=== PATIENT | male | born 1955 | race Caucasian/White ===

== ENCOUNTER 2021-10-11 05:43 | Day surgery (SDC) | payer MEDICARE, OTHER ==
[2021-10-08 09:24] VITALS: BMI 33.2
[~2021-10-11 05:43] MED LIST: Pre Op ABX Message 1 EACH MISC MISCELLANE ONE
[2021-10-11] MEDS ORDERED: LACTATED RINGERS 1,000 ML IV ONE ×2 (07:02→10:35)
[2021-10-11] MEDS ORDERED: DEXAMETHASONE SOD PHOSPHATE 4 MG/ML 1 ML VIAL IVP ONE (07:03)
[2021-10-11] MEDS ORDERED: ONDANSETRON 4 MG/2 ML VIAL IVP ONE (07:03)
[2021-10-11] MEDS ORDERED: ONDANSETRON 4 MG/2 ML VIAL ONE (07:04)
[2021-10-11 07:15] LABS: Basophils % (A) 0 %; Eosinophils # (A) 0.1 k/uL (0-0.7); Eosinophils % (A) 1 %; HCT 41.2 % (39.0-53.0); HGB 13.7 gm/dL (13.0-17.5); Lymphocytes # (A) 0.9 k/uL (1.0-4.8); Lymphocytes % (A) 10 %; MCH 26.2 pg (25.0-35.0); MCHC 33.2 g/dL (31.0-37.0); MCV 78.7 fL (80.0-100.0); Mean Platelet Volume 8.4; Monocytes # (A) 0.7 k/uL (0-1.0); Monocytes % (A) 8 %; Neutrophils # (A) 6.8 k/uL (1.3-7.7); Neutrophils % (A) 79 %; Platelet Count 218 k/uL (150-450); RBC 5.23 m/uL (4.30-5.90); RDW 14.5 % (11.5-15.5); WBC 8.6 k/uL (3.8-10.6)
[2021-10-11 07:32] LABS: African American GFR (CKD) >90 (>60 ml/min/1.73 sqM); Anion Gap 8 mmol/L; Blood Urea Nitrogen 24 mg/dL (9-20); Calcium 10.1 mg/dL (8.4-10.2); Carbon Dioxide 33 mmol/L (22-30); Chloride 89 mmol/L (98-107); Glucose 82 mg/dL (74-99); Non-African American GFR(CKD) >90 (>60 ml/min/1.73 sqM); Potassium 3.5 mmol/L (3.5-5.1); Sodium 130 mmol/L (137-145)
[2021-10-11] MEDS ORDERED: LIDOCAINE 2% INJ 20 MG/ML (2 ML VIAL) ONE (07:56)
[2021-10-11] MEDS ORDERED: SUCCINYLCHOLINE CHLORIDE 100 MG/5 ML SYR IV ONE (07:56)
[2021-10-11] MEDS ORDERED: NEOSTIGMINE 1 MG/ML 10 ML VIAL ONE (07:56)
[2021-10-11] MEDS ORDERED: ROCURONIUM 10 MG/ML (5 ML VIAL) IV ONE (07:56)
[2021-10-11] MEDS ORDERED: PROPOFOL 10 MG/ML 20 ML VIAL IV ONE (07:56)
[2021-10-11] MEDS ORDERED: fentaNYL (PF) 50 MCG/ML 2 ML AMP ONE (07:56)
[2021-10-11] MEDS ORDERED: GLYCOPYRROLATE 0.2 MG/ML 2 ML VIAL ONE (07:56)
[2021-10-11] MEDS ORDERED: HYDROmorphone (PF) 1 MG/ML ONE (07:56)
[2021-10-11] MEDS ORDERED: MIDAZOLAM 2 MG/2 ML VIAL ONE (07:56)
[2021-10-11] MEDS ORDERED: SODIUM CHLORIDE 0.9% 100 ML with ceFAZolin 2 GM IV ONE ×2 (08:00)
--- NOTE | 2021-10-11 09:29 | P.OP ---
Date of Procedure: 10/11/21 Procedure(s) Performed: PREOPERATIVE DIAGNOSES: 1. 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 Right chronic quadriceps tendon rupture and disru ption of the extensor mechanism, right knee PROCEDURES PERFORMED: 1. Right knee open quad tendon repair, secondary 2. Augmentation of quad repair with Arthrex dermal allograft, 4 cm x 4cm x 3 mm thickness ANESTHESIA: General ESTIMATED BLOOD LOSS: Less than 25 cc TOURNIQUET: 60 minutes C D AREA SUPERVISOR: Kori Garcia PA-C (Assistance with: patient positioning, exposure, retraction, debridement of scar tissue, repair, graft placement and fixation, closure, dressing, hemostasis) COMPLICATIONS: None DISPOSITION: To postanesthesia care unit INDICATIONS: Mr. Gale is a 66 year old male with no significant medical history who ruptured his quad tendon during a fall. This happened approximately 10 weeks ago and he has no active extension of the knee, and a puckered spot on the lateral aspect of his quad insertion indicating retraction of the quad stump from the patella. He presents to the operating room today for secondary quad tendon repair with possible augmentation with dermal allograft. I have explained the details of this surgery thoroughly and also explained the potential risks and complications. These are inclusive of, but not limited to: bleeding, infection, scarring, discomfort, blood vessel and nerve damage, stiffness, weakness, need for further surgery, failure to relieve symptoms, persistence or worsening of problems, , and other risks. He understands that he will likely lose some degree of flexion and we discussed that his quadriceps muscle may have difficulty activating and restoring strength. Patient is aware of these risks as well as the increased risk of poorer outcome due to the time frame of the injury and agrees to proceed with surgery. The consent form has been signed. PROCEDURE: Appropriate consent was obtained from the patient, who was then taken to the operating room and placed in the supine position. General anesthesia was initiated. Positioning was performed with care to make sure that all pressure points were adequately padded. Bear-hugger was used along with leg sequential compression device(s). Prepping and draping was completed in the usual aseptic fashion using Chloraprep. Timeout was called, confirming patient identity, side, procedure, and administration of antibiotics. The patient received intravenous antibiotics prior to incision. Incision was created over the anterior aspect of the knee directly over the patella and quad tendon. Incision was carried carefully down through skin into subcu tissues and to the peritenon. Full thickness subcutaneous flaps were created for exposure of the extensor mechanism and the ruptured quad tendon. The quad tendon had significant scar tissue present and this intervening tissue was removed as necessary to get back to the actual tendon material. The disorganized scar tissue was easily recognizable due to its diminished resilience with attempted mobilization with a forceps. The anterior superior aspect of the patella was noted to have minimal remaining soft tissue attached. This surface was roughened using a hand rasp so that the quad repair and planned dermal allograft would adhere and heal to its surface. Next, four 3 mm holes were drilled from the anterior aspect of the patella to the proximal edge. #5 FiberWire sutures were then brought through the patella using a Engagio suture passer and a modified Krackow type stitch was placed on one side of the quad tendon. The suture was brought through the adjacent hole made in the patella. In similar fashion, another #5 Fiberwire suture was placed into the other half of the quad tendon and brought through the drill holes. The patella was carefully held in place by an health center assistant and quad tendon was noted to be well reduced into the superior pole of the patella with the knee in full extension using some tension on the sutures. These sutures were then tied down to the bone securely with at least 6 alternating half-hitches in the fiber wire. Once tension was released, it was noted that the quad tendon adequately restored the continuity of the extensor mechanism centrally, although I felt that supplemental augmentation was necessary in this case due to the paucity of soft tissue on the anterior surface of the patella. Therefore, a dermal allograft, 4 cm x 4 cm x 3 mm thickness was placed on the anterior aspect of the repair and sutured circumferentially to the quad tendon, medial an lateral retinaculum, and the patellar tendon. This was performed with the knee in approximately 40 degrees of flexion. On both the medial and lateral sides of the extensor retinaculum, supplemental #2 FiberWire sutures were placed as well as 0 Vicryl sutures to further reinforce the repair. Once the graft had been placed, the knee was gently brought through range of motion from 0-50 degrees without undue tension or gapping at the repair site. I did not feel that flexing more than 50 degrees was safe for the repair at this time. The repair appeared robust without evidence of suture slippage or lengthening of the quad tendon. Further testing past 50 was not performed in order to not over stress the repair. Closure of the wound was performed after deflation of the tourniquet and thorough hemostasis using electrocautery. Deep subcutaneous closure was performed with 2-0 Vicryl sutures followed by superficial closure with the same. Ginny were used for the skin. Thorough irrigation of the wound was performed using normal saline. Hemostasis was obtained throughout the case using electrocautery. Sterile dressing was then applied using Optefoam, ABDs pads, Sharp roll and an Chris wrap and a secure knee immobilizer splint was applied. The patient tolerated the procedure well and no complications and minimal blood loss. He was subsequently transferred to recovery room in stable condition. Sponge and needle counts are correct.
[2021-10-11 09:47] VITALS: TEMP 97.3
[2021-10-11 09:55] VITALS: RESP 18
[2021-10-11] MEDS ORDERED: HYDROmorphone 0.5 MG/0.5 ML SYRINGE IVP ONE ×2 (09:59→10:21)
[2021-10-11 11:05] VITALS: BP 119/67; PULSE 66
== END 2021-10-11 12:00 | disposition home or self-care (01) ==
LOC: OR 05:43
PROVIDERS: ATTEND Orthopaedic Surgery
DX: S76.111D Strain of right quadriceps muscle, fascia and tendon, subsequent encounter (principal); K21.9 Gastro-esophageal reflux disease without esophagitis; Z88.0 Allergy status to penicillin; Z88.6 Allergy status to analgesic agent; Z91.018 Allergy to other foods; W19.XXXD Unspecified fall, subsequent encounter; Z79.899 Other long term (current) drug therapy; Z79.01 Long term (current) use of anticoagulants; Z80.9 Family history of malignant neoplasm, unspecified
CPT/HCPCS: 27386; C1713; J2250; J1100; J2710; J0690; J2405; J3010; J1170 ×2; J0330; J2704; J2001; 80048; 85025

== ENCOUNTER 2021-10-13 22:25 | Inpatient (IN) | payer MEDICARE, OTHER ==
--- NOTE | 2021-10-13 23:40 | ED ---
General Adult HPI - General Chief complaint: Shortness of Breath Stated complaint: Respiratory Failure Time Seen by Provider: 10/13/21 22:29 Source: patient, EMS Mode of arrival: EMS Limitations: no limitations - History of Present Illness Initial comments: This patient is a 66-year-old man who is seen here as a transfer from [facility]. The patient had gone to that facility to be evaluated for intractable nausea and vomiting. The patient did have workup for the nausea and vomiting, but that facility was more concerned when they placed him on pulse oxymetry probe it showed readings only as high as 91 on room air. Further workup revealed that the patient appeared to have multi lobar pneumonitis. The CT also showed some fluid in the esophagus and hiatal hernia and there is concern about aspiration as the patient had multiple rounds of vomiting. The patient's recent history is notable for repair of the quadriceps here by Dr. Alfaro. The patient is denying any change in his postsurgical symptoms. Patient taking Eliquis as DVT prophylaxis but he had vomited last dose. -: hour(s) Radiation: non-radiation Quality: other Consistency: constant Improves with: none Worsens with: none Associated Symptoms: cough, nausea/vomiting Treatments Prior to Arrival: none - Related Data Home Medications Medication Instructions Recorded Confirmed Ferrous Sulfate [Feosol] 325 mg PO DAILY 10/08/21 10/13/21 Previous Rx's Medication Instructions Recorded Apixaban [Eliquis] 2.5 mg PO BID #24 tab 10/11/21 Ondansetron Odt [Zofran Odt] 4 mg PO Q8HR PRN #14 tab 10/11/21 Sennosides-Docusate Sodium 1 tab PO BID #60 tablet 10/11/21 [Senokot-S] Allergies Allergy/AdvReac Type Severity Reaction Status Date / Time aspirin AdvReac SEE Verified 10/13/21 23:42 COMMENTS Penicillins AdvReac SEE Verified 10/13/21 23:42 COMMENTS oranges Allergy Rash/Hives Uncoded 10/11/21 06:32 Review of Systems ROS Statement: Those systems with pertinent positive or pertinent negative responses have been documented in the HPI. ROS Other: All systems not noted in ROS Statement are negative. Constitutional: Denies: fever Respiratory: Reports: cough. Denies: dyspnea, wheezes, hemoptysis Cardiovascular: Denies: chest pain, palpitations, syncope Gastrointestinal: Reports: nausea, vomiting. Denies: abdominal pain, diarrhea, constipation, hematemesis Musculoskeletal: Denies: back pain Skin: Denies: rash Neurological: Denies: headache, weakness, numbness Past Medical History Additional Past Medical History / Comment(s): Fell 9 weeks ago down the stairs. Hx. of anemia. History of Any Multi-Drug Resistant Organisms: None Reported Additional Past Surgical History / Comment(s): EGD, colonoscopy Past Anesthesia/Blood Transfusion Reactions: No Reported Reaction Past Psychological History: No Psychological Hx Reported Smoking Status: Never smoker Past Alcohol Use History: None Reported Past Drug Use History: None Reported - Past Family History Mother Family Medical History: Cancer General Exam Limitations: no limitations General appearance: alert, in no apparent distress Head exam: Present: atraumatic, normocephalic Eye exam: Present: normal appearance. Absent: scleral icterus, conjunctival injection ENT exam: Present: mucous membranes dry Neck exam: Present: normal inspection, full ROM Respiratory exam: Present: rales, rhonchi. Absent: respiratory distress, wheezes, stridor, chest wall tenderness, accessory muscle use Cardiovascular Exam: Present: regular rate, normal rhythm, normal heart sounds. Absent: systolic murmur, diastolic murmur, rubs, gallop GI/Abdominal exam: Present: soft. Absent: distended, tenderness, guarding, rebound, rigid, mass Extremities exam: Present: normal capillary refill, other (There is a knee immobilizer right leg. Distal pulses are normal. There is good capillary refill.). Absent: tenderness Back exam: Present: normal inspection. Absent: vertebral tenderness Neurological exam: Present: alert, oriented X3. Absent: motor sensory deficit Skin exam: Present: warm, dry, intact, normal color. Absent: rash Course Vital Signs 10/13/21 10/13/21 10/14/21 22:28 23:00 03:40 Temperature 97.8 F Pulse Rate 81 77 89 Pulse Rate [ Pulse Oximetery ] Respiratory 16 18 18 Rate Blood Pressure 93/60 107/69 94/54 Blood Pressure [Right Arm] O2 Sat by Pulse 91 L 95 94 L Oximetry 10/14/21 10/14/21 04:15 05:40 Temperature 97.7 F Pulse Rate Pulse Rate [ 83 83 Pulse Oximetery ] Respiratory 16 16 Rate Blood Pressure Blood Pressure 96/62 [Right Arm] O2 Sat by Pulse 97 Oximetry EKG Findings - EKG Results: EKG: interpreted by ERMD, sinus rhythm (With occasional PVCs, rate 85 bpm), normal axis - Blocks, Chandler, Hypertrophy, ST Abn: AV and intraventricular conduction: 1 AV block Repolarization changes or abnormalities: nonspecific abnormality, ST segment, and/or T wave Medical Decision Making - Medical Decision Making Patient is 66-year-old man transferred from [facility] for multi lobar pneumonitis, suspect aspiration. Case discussed with sound physician and patient be admitted for further treatment. Disposition Clinical Impression: Pneumonia Disposition: ADMITTED IP TO THIS HOSP Condition: Fair Is patient prescribed a controlled substance at d/c from ED?: No Referrals: Ani Diaz PAC [Primary Care Provider] - 1-2 days
[2021-10-14] MEDS ORDERED: SODIUM CHLORIDE 0.9% 1,000 ML IV STA (01:10)
[2021-10-14] MEDS ORDERED: SODIUM CHLORIDE 0.9% 500 ML 500 ML IV STA (01:10)
[2021-10-14] MEDS ORDERED: PNEUMONIA PROTOCOL UTILIZED 1 EACH MISC PO PRN (01:12)
[2021-10-14] MEDS ORDERED: ALBUTEROL NEBULIZED 2.5 MG/3 ML INHALATION PRN (01:12)
[2021-10-14] MEDS ORDERED: AZITHROMYCIN 500 MG in SODIUM CHLORIDE 0.9% 250 ML IVPB ONE (01:30)
[2021-10-14] MEDS ORDERED: CEFEPIME 2 GM in SODIUM CHLORIDE 0.9% 100 ML IVPB ONE (01:30)
[2021-10-14] MEDS ORDERED: ONDANSETRON 4 MG/2 ML VIAL IVP PRN (05:30)
--- NOTE | 2021-10-14 05:38 | P.HPIM ---
History of Present Illness H&P Date: 10/14/21 Chief Complaint: hypoxemia 66-year-old male denies any past medical history Patient is a transfer from [facility] in the [facility], for hypoxemia secondary to what is thought to be aspiration pneumonitis. Patient recently underwent right lower extremity quadrant repair few days ago (which was an injury secondary to an accidental fall off the stairs couple months ago), he went home on Monday and reports frequent episodes of nausea vomiting despite taking his medications. He reports waking up with vomiting all around him in bed his brother grew concerned and decided to take him to the hospital for evaluation. EMS found him hypoxic in the mid 80s put him on supplemental oxygen. Patient indicated that he was not taking his liquids as prescribed for DVT prophylaxis postsurgery. CT angios the chest was performed at [facility] at the [facility] found no evidence of PE, however did show evidence of patchy infiltrates over the posteriorly in the right upper lobe and in the left lower lobe which was suggestive of possible aspiration. Patient was found to have increasing requirement of oxygen he was placed on nonrebreather 15 L. And then transferred to our facility for further care Currently patient denies any chest pain denies any shortness of breath denies any dizziness lightheadedness denies any fevers or chills he feels that the knee immobilizer is very tight around his knee and requesting to see his surgeon. Blood work done at the other facility showed hypomagnesemia and hypokalemia it's not clear to me if this was replaced Mild microcytic anemia. Hemoglobin of 12.6 patient on ferrous sulfate Lactic acid was 1.6 Patient denies tobacco smoking, drug abuse, or heavy alcohol consumption Review of Systems Pertinent positives as noted in HPI. All other systems were reviewed and are negative Past Medical History Additional Past Medical History / Comment(s): Fell 9 weeks ago down the stairs. Hx. of anemia. History of Any Multi-Drug Resistant Organisms: None Reported Additional Past Surgical History / Comment(s): EGD, colonoscopy Past Anesthesia/Blood Transfusion Reactions: No Reported Reaction Past Psychological History: No Psychological Hx Reported Smoking Status: Never smoker Past Alcohol Use History: None Reported Past Drug Use History: None Reported - Past Family History Mother Family Medical History: Cancer Father Family Medical History: Cancer Brother(s) Family Medical History: Cancer, Myocardial Infarction ([place]) Additional Family Medical History / Comment(s): 2 brothers w/ hx of cancer, 1 other from [place] Medications and Allergies Home Medications Medication Instructions Recorded Confirmed Type Ferrous Sulfate [Feosol] 325 mg PO DAILY 10/08/21 10/13/21 History Apixaban [Eliquis] 2.5 mg PO BID #24 tab 10/11/21 10/13/21 Rx Ondansetron Odt [Zofran Odt] 4 mg PO Q8HR PRN #14 tab 10/11/21 10/13/21 Rx Sennosides-Docusate Sodium 1 tab PO BID #60 tablet 10/11/21 10/13/21 Rx [Senokot-S] Allergies Allergy/AdvReac Type Severity Reaction Status Date / Time aspirin AdvReac SEE Verified 10/13/21 23:42 COMMENTS Penicillins AdvReac SEE Verified 10/13/21 23:42 COMMENTS oranges Allergy Rash/Hives Uncoded 10/11/21 06:32 Physical Exam Vitals: Vital Signs Temp Pulse Resp BP Pulse Ox 10/13/21 23:00 77 18 107/69 95 10/13/21 22:28 97.8 F 81 16 93/60 91 L Intake and Output 10/13/21 10/13/21 10/14/21 14:59 22:59 06:59 Other: Weight 48.534 kg Patient my examConstitutional: No acute distress, conversant, pleasant Eyes: Anicteric sclerae, moist conjunctiva, Pupils equal round reactive to light ENMT: NC/AT Oropharynx clear, no erythema, or exudates Neck: Supple, no masses, or JVD No carotid bruits No thyromegaly Lungs: Good breath sounds bilaterally no wheezing rhonchi or rales Clear to percussion Normal respiratory effort, no accessory muscle use Cardiovascular: Heart regular in rate and rhythm, No murmurs, gallops, or rubs No peripheral edema Abdominal: Soft Nontender, no guarding, rebound or rigidity Abdomen moving with respiration Normoactive bowel sounds No hepatomegaly, No splenomegaly No palpable mass No abdominal wall hernia noted Skin: Normal temperature, tone, texture, turgor No induration No subcutaneous nodules No rash, lesions No ulcers Extremities: Right lower extremity with knee immobilizer No digital cyanosis No clubbing Pedal pulses intact and symmetrical, capillary refill immediate Radial pulses intact and symmetrical No calf tenderness Psychiatric: Alert and oriented to person, place and time Appropriate affect fair judgement Neuro Muscles Strength 5/5 in bilateral upper extremities and left lower extremity, right lower extremity exam is limited due to surgery and knee immobilizer Sensation to light touch grossly present throughout Cranial nerves II-XII grossly intact No focal sensory deficits Lymphatics: no palpable cervical or supraclavicular , or inguinal lymph nodes Assessment and Plan Assessment: Acute hypoxic respiratory failure Aspiration pneumonitis Aspiration precautions Follow-up cultures Patient initiated on antibiotics in the ED with azithromycin and cefepime Monitor vital signs IV fluid hydration with normal saline Tylenol for fever when necessary CT angios the chest performed showed no acute PE, showed changes suggestive of possible aspiration posteriorly in the right upper lobe in the left lower lobe Recent surgery for carotid repair of right lower extremity patient continues to be in the immobilizer Consult to orthopedics for follow-up Continue with a liquids for DVT prophylaxis postop Microcytic anemia Patient denies GI bleeding Continue with ferrous sulfate home medication Hypomagnesemia and hypokalemia We'll follow-up levels Unknown if it was replaced and the other facility DVT prophylaxis on Ellquis per orthopedic recommendations for postop Full code
[2021-10-14] MEDS: FERROUS SULFATE 325 MG TAB PO SCH (07:50)
[2021-10-14] MEDS: SENNOSIDES-DOCUSATE SODIUM 1 EACH TAB PO SCH ×2 (07:50→21:11)
[2021-10-14] MEDS: APIXABAN 2.5 MG TABLET PO SCH ×2 (07:50→21:11)
[2021-10-14] MEDS ORDERED: CEFEPIME 2 GM in SODIUM CHLORIDE 0.9% 100 ML IVPB SCH (08:00)
[2021-10-14] MEDS: IPRATROPIUM-ALBUTEROL 3 ML NEB INHALATION SCH ×4 (08:35→19:22)
--- NOTE | 2021-10-14 08:47 | P.CNOR ---
History of Present Illness - [facility] Consult date: 10/14/21 Consult reason: other (Status post quad repair right knee.) History of present illness: This is a 66-year-old male who is status post quad repair of the right knee. 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 He was discharged to home with family. I received a call from his family member yesterday stating that he was vomiting often and unable to keep liquids down. I instructed family to take him to the emergency department. He was transferred to [facility] last evening with dehydration and aspiration pneumonia. He is admitted to internal medicine and we are consultation for orthopedic follow-up regarding his right knee. Past Medical History Additional Past Medical History / Comment(s): Fell 9 weeks ago down the stairs. Hx. of anemia. History of Any Multi-Drug Resistant Organisms: None Reported Additional Past Surgical History / Comment(s): EGD, colonoscopy Past Anesthesia/Blood Transfusion Reactions: No Reported Reaction Past Psychological History: No Psychological Hx Reported Smoking Status: Never smoker Past Alcohol Use History: None Reported Past Drug Use History: None Reported - Past Family History Mother Family Medical History: Cancer Father Family Medical History: Cancer Brother(s) Family Medical History: Cancer, Myocardial Infarction ([place]) Additional Family Medical History / Comment(s): 2 brothers w/ hx of cancer, 1 other from [place] Medications and Allergies Home Medications Medication Instructions Recorded Confirmed Type Ferrous Sulfate [Feosol] 325 mg PO DAILY 10/08/21 10/13/21 History Apixaban [Eliquis] 2.5 mg PO BID #24 tab 10/11/21 10/13/21 Rx Ondansetron Odt [Zofran Odt] 4 mg PO Q8HR PRN #14 tab 10/11/21 10/13/21 Rx Sennosides-Docusate Sodium 1 tab PO BID #60 tablet 10/11/21 10/13/21 Rx [Senokot-S] Allergies Allergy/AdvReac Type Severity Reaction Status Date / Time aspirin AdvReac SEE Verified 10/13/21 23:42 COMMENTS Penicillins AdvReac SEE Verified 10/13/21 23:42 COMMENTS oranges Allergy Rash/Hives Uncoded 10/11/21 06:32 Physical Examination This is a pleasant 66-year-old male in no acute distress. He is alert and oriented 3. Exam of the right lower extremity reveals that his dressing is clean, dry and intact. The Chris wrap is removed. The OptiFoam dressing looks good. There is no surrounding erythema or ecchymosis. He has full foot and ankle motion without difficulty or pain. Neurovascular status to the lower extremity is intact. Assessment and Plan (1) Quadriceps muscle rupture Current Visit: Yes Status: Acute Code(s): S76.119A - STRAIN OF UNSP QUADRICEPS MUSCLE, FASCIA AND TENDON, INIT SNOMED Code(s): 505746756 (2) Status post tendon repair Current Visit: Yes Status: Acute Code(s): Z98.890 - OTHER SPECIFIED POSTPROCEDURAL STATES SNOMED Code(s): 875347470 (3) Pneumonia Current Visit: Yes Status: Acute Code(s): J18.9 - PNEUMONIA, UNSPECIFIED ORGANISM SNOMED Code(s): 247240358 Plan: The clinical findings are discussed with the patient. He is to continue current orthopedic care. He is toe-touch weightbearing to the lower extremity with walker. He is to maintain the knee immobilizer at all times. It may be opened daily for skin checks.
[2021-10-14 08:58] LABS: African American GFR (CKD) 113.2 (60.0-200.0); Anion Gap 10.4 mmol/L (10.00-18.00); BUN/Creat Ratio 40.57 Ratio (12.00-20.00); Blood Urea Nitrogen 28.4 mg/dL (9.0-27.0); Calcium 8.6 mg/dL (8.7-10.3); Carbon Dioxide 29.6 mmol/L (20.0-27.5); Magnesium 1.8 mg/dL (1.5-2.4); Non-African American GFR(CKD) 97.7 (60.0-200.0); Potassium 4.1 mmol/L (3.5-5.5)
[2021-10-14] MEDS ORDERED: MAG HYDROX/AL HYDROX/SIMETH 30 ML CUP PO PRN (09:56)
[2021-10-14] MEDS: metroNIDAZOLE-NS PMX 500 MG in SALINE 1 100ML.BAG IVPB SCH ×2 (10:26→16:27)
[2021-10-14] MEDS: CEFEPIME 2 GM in SODIUM CHLORIDE 0.9% 100 ML IVPB SCH ×2 (12:09→19:26)
[2021-10-14] MEDS ORDERED: CALCIUM CARBONATE 500 MG CHEWABLE PO PRN (13:33)
--- NOTE | 2021-10-14 13:39 | P.PN ---
Progress Note - Text Progress Note Date: 10/14/21 Patient was transferred for intractable nausea vomiting since his orthopedic surgery done 3 days ago. Per nurse patient has been spitting more and not vomiting. Patient had a computed tomography scan that showed possible aspiration pneumonia and hiatal hernia. Patient also complaining of chest burning consistent with acid reflux. Patient started on Tums and Protonix. Likely etiology of his intractable nausea vomiting is acid reflux versus opioids. Per brother at bedside patient is taryn to opioids. I will also stop his opioids. We'll give patient Tylenol for pain. I will also obtain a UA to rule out UTI.
[2021-10-14] MEDS: ACETAMINOPHEN TAB 325 MG TAB PO PRN (16:28)
[2021-10-14] MEDS: PANTOPRAZOLE 40 MG TABLET PO SCH (16:47)
[2021-10-15] MEDS: metroNIDAZOLE-NS PMX 500 MG in SALINE 1 100ML.BAG IVPB SCH ×3 (01:37→18:21)
[2021-10-15] MEDS ORDERED: AZITHROMYCIN 500 MG in SODIUM CHLORIDE 0.9% 250 ML IVPB SCH (03:00)
[2021-10-15] MEDS: CEFEPIME 2 GM in SODIUM CHLORIDE 0.9% 100 ML IVPB SCH ×3 (03:06→21:30)
[2021-10-15] MEDS: IPRATROPIUM-ALBUTEROL 3 ML NEB INHALATION SCH ×4 (07:14→19:17)
--- NOTE | 2021-10-15 07:26 | XR ---
EXAMINATION TYPE: XR chest 2V DATE OF EXAM: 10/15/2021 COMPARISON: CT thorax 10/13/2021 INDICATION: Pneumonia TECHNIQUE: Frontal and lateral views of the chest are obtained. FINDINGS: The heart size is normal. The pulmonary vasculature is normal. Patchy bilateral lung infiltrates are present greater to the left lower lobe. This well-visualized on the lateral projection.. Patient's large posterior hernia and prominent esophagus or not well visua lized on the plain films. Air-fluid level may be evident in the upper chest which would correspond to the prominent esophagus in the comparison CT. IMPRESSION: 1. Patchy bibasilar infiltrates greatest at the left lower lobe. Correlate for pneumonia. Follow-up i s recommended.
--- NOTE | 2021-10-15 08:25 | P.PN ---
Subjective Progress Note Date: 10/15/21 Principal diagnosis: Acute aspiration pneumonia. Status post quadriceps repair right knee. This is a 66-year-old male who is status post quad repair of the right knee. 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 He was discharged to home with family. I received a call from his family member yesterday stating that he was vomiting often and unable to keep liquids down. I instructed family to take him to the emergency department. He was transferred to [facility] last evening with dehydration and aspiration pneumonia. He is admitted to internal medicine and we are consultation for orthopedic follow-up regarding his right knee. 10/15/2021: The patient is stable from an orthopedic standpoint. He has no new complaints or concerns today. He is tolerating his knee immobilizer well. Vital signs and labs are stable. Objective - Vital Signs Vital signs: Vital Signs Temp 98.4 F 10/15/21 02:01 Pulse 84 10/15/21 07:28 Resp 28 H 10/15/21 02:01 BP 91/53 10/15/21 02:01 Pulse Ox 93 L 10/15/21 02:01 FiO2 Intake & Output 10/14/21 10/15/21 10/15/21 18:59 06:59 18:59 Output Total 200 100 Balance -200 -100 Weight 48.534 kg Output: Urine 200 100 Other: Voiding Method Urinal # Voids 0 - Exam This is a pleasant 66-year-old male in no acute distress. He is alert and oriented 3. Exam of the right lower extremity reveals that the knee immobilizer is intact. He has full foot and ankle motion without difficulty or pain. Neurovascular status to the lower extremity is intact. - Labs CBC & Chem 7: 10/14/21 06:35 Labs: Abnormal Lab Results - Last 24 Hours (Table) 10/14/21 Range/Units 06:35 Carbon Dioxide 29.6 H (20.0-27.5) mmol/L BUN 28.4 H (9.0-27.0) mg/dL BUN/Creatinine Ratio 40.57 H (12.00-20.00) Ratio Glucose 134 H (70-110) mg/dL Calcium 8.6 L (8.7-10.3) mg/dL Microbiology - Last 24 Hours (Table) 10/14/21 03:00 Blood Culture - Preliminary Blood No Growth after 24 hours 10/14/21 03:23 Blood Culture - Preliminary Blood No Growth after 24 hours 10/14/21 16:15 Sputum Culture - Preliminary Sputum Assessment and Plan (1) Quadriceps muscle rupture Current Visit: Yes Status: Acute Code(s): S76.119A - STRAIN OF UNSP QUADRICEPS MUSCLE, FASCIA AND TENDON, INIT SNOMED Code(s): 880670286 (2) Status post tendon repair Current Visit: Yes Status: Acute Code(s): Z98.890 - OTHER SPECIFIED POSTPROCEDURAL STATES SNOMED Code(s): 972052219 (3) Pneumonia Current Visit: Yes Status: Acute Code(s): J18.9 - PNEUMONIA, UNSPECIFIED ORGANISM SNOMED Code(s): 111812762 Plan: The clinical findings are discussed with the patient. He is to continue current orthopedic care. He is toe-touch weightbearing to the lower extremity with walker. He is to maintain the knee immobilizer at all times. It may be opened daily for skin checks.
[2021-10-15] MEDS: APIXABAN 2.5 MG TABLET PO SCH ×2 (08:26→21:31)
[2021-10-15] MEDS: FERROUS SULFATE 325 MG TAB PO SCH (08:26)
[2021-10-15] MEDS: PANTOPRAZOLE 40 MG TABLET PO SCH ×2 (08:26→18:21)
[2021-10-15] MEDS: SENNOSIDES-DOCUSATE SODIUM 1 EACH TAB PO SCH ×2 (08:26→21:31)
[2021-10-15 09:14] LABS: Basophils # (A) 0.01 X 10*3/uL (0.00-0.10); Basophils % (A) 0.1 %; Eosinophils # (A) 0 X 10*3/uL (0.04-0.35); Eosinophils % (A) 0 %; HGB 10.4 g/dL (13.0-17.0); Immature Grans, Automated 0.3 %; Lymphocytes # (A) 0.37 X 10*3/uL (0.90-5.00); Lymphocytes % (A) 5.2 %; MCH 25.4 pg (27.0-32.0); MCHC 31.5 g/dL (32.0-37.0); MCV 80.5 fL (80.0-97.0); Monocytes # (A) 0.55 X 10*3/uL (0.20-1.00); Monocytes % (A) 7.8 %; NRBC Per 100 WBC 0 /100 WBCS (0.0-0.0); Neutrophils # (A) 6.12 X 10*3/uL (1.80-7.70); Neutrophils % (A) 86.6 %; Platelet Count 236 X 10*3/uL (140-440); RDW 14.8 % (11.5-14.5); WBC 7.07 X 10*3/uL (4.50-10.00)
[2021-10-15 10:20] LABS: African American GFR (CKD) 120.6 (60.0-200.0); Anion Gap 9.7 mmol/L (10.00-18.00); BUN/Creat Ratio 53.5 Ratio (12.00-20.00); Blood Urea Nitrogen 32.1 mg/dL (9.0-27.0); Calcium 9.1 mg/dL (8.7-10.3); Carbon Dioxide 29.3 mmol/L (20.0-27.5); Magnesium 1.9 mg/dL (1.5-2.4); Potassium 3.3 mmol/L (3.5-5.5)
[2021-10-15] MEDS ORDERED: BENZONATATE 100 MG CAP PO PRN (11:28)
[2021-10-15] MEDS ORDERED: POTASSIUM CHLORIDE 20 MEQ in WATER FOR INJECTION 1 100ML.BAG IVPB STA (11:32)
--- NOTE | 2021-10-15 11:40 | P.PN ---
Subjective Progress Note Date: 10/15/21 Principal diagnosis: Intractable nausea and vomiting Patient is a 66-year-old male who recently had a right lower extremity quads repair at our facility who presents with intractable nausea and vomiting since his surgery. Patient came from an outside facility where he is also found to have aspiration pneumonia and hypoxia. He was also found to have a hiatal hernia. Patient started on cefepime and Flagyl. Patient also started on Protonix and Tums. Patient continues to have intractable nausea and vomiting. Patient says that all night he was coughing and also having episodes of vomiting. I confirmed with the nurse who said that his vomiting basin had vomit and it. Patient states that he is only able to tolerate insurance. He states that he is not able to drink anything else. Patient also states that it has been several days since he had a bowel movement. Patient still on 4 L nasal cannula and is satting around 90%. Patient not in any respiratory distress and denies any shortness of breath. 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 Psych - Calm and cooperative - Labs CBC & Chem 7: 10/15/21 03:53 10/15/21 03:53 Labs: Abnormal Lab Results - Last 24 Hours (Table) 10/15/21 10/15/21 Range/Units 03:53 03:53 RBC 4.10 L (4.40-5.60) X 10*6/uL Hgb 10.4 L (13.0-17.0) g/dL Hct 33.0 L (39.6-50.0) % MCH 25.4 L (27.0-32.0) pg MCHC 31.5 L (32.0-37.0) g/dL RDW 14.8 H (11.5-14.5) % Lymphocytes # 0.37 L (0.90-5.00) X 10*3/uL Eosinophils # 0 L (0.04-0.35) X 10*3/uL Potassium 3.3 L (3.5-5.5) mmol/L Carbon Dioxide 29.3 H (20.0-27.5) mmol/L Anion Gap 9.70 L (10.00-18.00) mmol/L BUN 32.1 H (9.0-27.0) mg/dL BUN/Creatinine Ratio 53.50 H (12.00-20.00) Ratio Glucose 118 H (70-110) mg/dL Microbiology - Last 24 Hours (Table) 10/14/21 16:15 Gram Stain - Preliminary Sputum Sputum Culture - Preliminary 10/14/21 03:00 Blood Culture - Preliminary Blood No Growth after 24 hours 10/14/21 03:23 Blood Culture - Preliminary Blood No Growth after 24 hours Assessment and Plan Assessment: Intractable nausea and vomiting -Could be due to gastritis due to hiatal hernia -We'll check gastric emptying study -Start Protonix and Tums -Since patient's symptoms started after surgery he could be opioid taryn so will avoid opioids -Could also be due to constipation as patient was on opioids -Patient started on stool softeners -Patient says that it has been several days since he had a bowel movement -Diet as tolerated -Check UA to rule out UTI -IV fluids Acute hypoxic respiratory failure Aspiration pneumonia -Patient started on cefepime and Flagyl -CT angiogram at the outside facility showed no acute PE but did show findings consistent with possible aspiration in the right upper lobe and in the left lower lobe -Blood cultures negative to date. -Follow up on sputum culture Recent surgery for quads repair of the right lower extremity -Orthopedic surgery following an from that standpoint patient is stable Hypomagnesemia and hypokalemia -Replete as needed Microcytic anemia -Continue ferrous sulfate home medications -Hemoglobin stable and patient denies any GI bleeding DVT prophylaxis on Ellquis per orthopedic recommendations for postop Full code Patient lives alone at home. His brother lives close by and helps to take care of him. 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 Patient will need to go home with home care when medically stable.
[2021-10-15 12:31] LABS: Appearance,Urine Clear (Clear); Bilirubin,Urine Negative (Negative); Blood,Urine Negative (Negative); Color,Urine Yellow; Glucose,Urine (UA) Negative (Negative); Ketones,Urine 1+ (Negative); Leukocyte Esterase,Urine Negative (Negative); Mucus,Urine Rare /hpf; Nitrite,Urine Negative (Negative); PH, Urine 6.5 (5.0-8.0); Protein,Urine 1+ (Negative); RBC,Urine 1 /hpf (0-5); Specific Gravity,Urine 1.042 (1.001-1.035); Squamous Epithelial Cell,Urine <1 /hpf (0-4); Urobilinogen,Urine <2.0 mg/dL (<2.0); WBC,Urine 4 /hpf (0-5)
--- NOTE | 2021-10-15 21:25 | NM ---
EXAMINATION TYPE: NM gastric emptying static DATE OF EXAM: 10/15/2021 COMPARISON: NONE HISTORY: No clinical indication provided. Following administration of 2 mCi Tc 99m Sulfur Colloid with 7 oz. Ensure Plus, projection images of the abdomen were obtained 5 minutes post ingestion. Patient Emptying Values 1 Hour 53 % 2 Hours 80 % 3 Hours 94 % 4 Hours 95 % Gastroesophagel reflux: None IMPRESSION: Gastric emptying: Within normal limits Gastroesophageal reflux: Not identified Gastric emptying normal percentage values: 30 minutes: <70% of retention (> 30% emptying) suggests abnormally fast emptying. 60 minutes: <90% retention (>10% emptying) is normal; less than 30% retention (>70% emptying) suggest s abnormally rapid emptying. 90 minutes: <65% retention (> 35% emptying) is normal. 120 minutes: <60% retention (> 40% emptying) is normal. 180 minutes: <30% retention (> 70% emptying) is normal. Gastric emptying T-1/2: Solid: The normal range is 60-105 minutes Liquid only: Normal range is 10-45 minutes. Liquid only-children: At 60 minutes, normal range is 44-58 % . Liquid only-infants: At 60 minutes, normal range is 32-64 %.
[2021-10-16] MEDS: metroNIDAZOLE-NS PMX 500 MG in SALINE 1 100ML.BAG IVPB SCH ×2 (01:48→09:09)
[2021-10-16] MEDS: CEFEPIME 2 GM in SODIUM CHLORIDE 0.9% 100 ML IVPB SCH ×3 (02:49→19:06)
[2021-10-16] MEDS: IPRATROPIUM-ALBUTEROL 3 ML NEB INHALATION SCH ×4 (07:23→20:30)
[2021-10-16] MEDS: SENNOSIDES-DOCUSATE SODIUM 1 EACH TAB PO SCH ×2 (09:06→20:47)
[2021-10-16] MEDS: FERROUS SULFATE 325 MG TAB PO SCH (09:07)
[2021-10-16] MEDS: APIXABAN 2.5 MG TABLET PO SCH ×2 (09:08→20:46)
[2021-10-16] MEDS: PANTOPRAZOLE 40 MG TABLET PO SCH ×2 (09:08→17:46)
[2021-10-16 09:14] LABS: Basophils # (A) 0.01 X 10*3/uL (0.00-0.10); Basophils % (A) 0.2 %; Eosinophils # (A) 0 X 10*3/uL (0.04-0.35); Eosinophils % (A) 0 %; HCT 35.3 % (39.6-50.0); Immature Grans, Automated 0.8 %; Lymphocytes # (A) 0.46 X 10*3/uL (0.90-5.00); Lymphocytes % (A) 7.2 %; MCH 25.4 pg (27.0-32.0); MCHC 31.2 g/dL (32.0-37.0); MCV 81.5 fL (80.0-97.0); Mean Platelet Volume 10.5 fL (9.5-12.2); Monocytes # (A) 0.51 X 10*3/uL (0.20-1.00); NRBC Per 100 WBC 0 /100 WBCS (0.0-0.0); Neutrophils # (A) 5.37 X 10*3/uL (1.80-7.70); Neutrophils % (A) 83.8 %; Platelet Count 287 X 10*3/uL (140-440); RBC 4.33 X 10*6/uL (4.40-5.60); RDW 14.8 % (11.5-14.5)
[2021-10-16 09:19] LABS: African American GFR (CKD) 119.7 (60.0-200.0); Anion Gap 9.9 mmol/L (10.00-18.00); BUN/Creat Ratio 56.46 Ratio (12.00-20.00); Blood Urea Nitrogen 34.5 mg/dL (9.0-27.0); Calcium 9.9 mg/dL (8.7-10.3); Non-African American GFR(CKD) 103.3 (60.0-200.0); Potassium 3.8 mmol/L (3.5-5.5)
--- NOTE | 2021-10-16 10:06 | P.PN ---
Subjective Progress Note Date: 10/16/21 Principal diagnosis: Acute aspiration pneumonia. Status post quadriceps repair right knee. This is a 66-year-old male who is status post quad repair of the right knee. 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 He was discharged to home with family. I received a call from his family member yesterday stating that he was vomiting often and unable to keep liquids down. I instructed family to take him to the emergency department. He was transferred to [facility] last evening with dehydration and aspiration pneumonia. He is admitted to internal medicine and we are consultation for orthopedic follow-up regarding his right knee. 10/15/2021: The patient is stable from an orthopedic standpoint. He has no new complaints or concerns today. He is tolerating his knee immobilizer well. Vital signs and labs are stable. 10/16/2021: The patient is doing well. He is sitting up in a chair with no new complaints or concerns today. Vital signs are stable. Objective - Vital Signs Vital signs: Vital Signs Temp 97.9 F 10/16/21 07:54 Pulse 85 10/16/21 07:54 Resp 16 10/16/21 07:54 BP 98/64 10/16/21 07:54 Pulse Ox 92 L 10/16/21 07:54 FiO2 Intake & Output 10/15/21 10/16/21 10/16/21 18:59 06:59 18:59 Output Total 600 Balance -600 Output: Urine 600 Other: Voiding Method Urinal - Exam This is a pleasant 66-year-old male in no acute distress. He is alert and o riented 3. Exam of the right lower extremity reveals that the knee immobilizer is intact. Immobilizer has slid down his leg. He has full foot and ankle motion without difficulty or pain. Neurovascular status to the lower extremity is intact. - Labs CBC & Chem 7: 10/16/21 06:06 10/16/21 06:06 Labs: Abnormal Lab Results - Last 24 Hours (Table) 10/15/21 10/15/21 10/16/21 Range/Units 03:53 12:15 06:06 RBC 4.33 L (4.40-5.60) X 10*6/uL Hgb 11.0 L (13.0-17.0) g/dL Hct 35.3 L (39.6-50.0) % MCH 25.4 L (27.0-32.0) pg MCHC 31.2 L (32.0-37.0) g/dL RDW 14.8 H (11.5-14.5) % Immature Gran # 0.05 H (0.00-0.04) X 10*3/uL Lymphocytes # 0.46 L (0.90-5.00) X 10*3/uL Eosinophils # 0 L (0.04-0.35) X 10*3/uL Potassium 3.3 L (3.5-5.5) mmol/L Carbon Dioxide 29.3 H (20.0-27.5) mmol/L Anion Gap 9.70 L (10.00-18.00) mmol/L BUN 32.1 H (9.0-27.0) mg/dL BUN/Creatinine Ratio 53.50 H (12.00-20.00) Ratio Glucose 118 H (70-110) mg/dL Ur Specific [place] 1.042 H (1.001-1.035) Urine Protein 1+ H (Negative) Urine Ketones 1+ H (Negative) Urine Mucus Rare H (None) /hpf 10/16/21 Range/Units 06:06 RBC (4.40-5.60) X 10*6/uL Hgb (13.0-17.0) g/dL Hct (39.6-50.0) % MCH (27.0-32.0) pg MCHC (32.0-37.0) g/dL RDW (11.5-14.5) % Immature Gran # (0.00-0.04) X 10*3/uL Lymphocytes # (0.90-5.00) X 10*3/uL Eosinophils # (0.04-0.35) X 10*3/uL Potassium (3.5-5.5) mmol/L Carbon Dioxide 29.0 H (20.0-27.5) mmol/L Anion Gap 9.90 L (10.00-18.00) mmol/L BUN 34.5 H (9.0-27.0) mg/dL BUN/Creatinine Ratio 56.46 H (12.00-20.00) Ratio Glucose 120 H (70-110) mg/dL Ur Specific [place] (1.001-1.035) Urine Protein (Negative) Urine Ketones (Negative) Urine Mucus (None) /hpf Microbiology - Last 24 Hours (Table) 10/14/21 03:00 Blood Culture - Preliminary Blood No Growth after 48 hours 10/14/21 03:23 Blood Culture - Preliminary Blood No Growth after 48 hours 10/14/21 16:15 Gram Stain - Preliminary Sputum Sputum Culture - Preliminary Assessment and Plan (1) Quadriceps muscle rupture Current Visit: Yes Status: Acute Code(s): S76.119A - STRAIN OF UNSP QUADR ICEPS MUSCLE, FASCIA AND TENDON, INIT SNOMED Code(s): 721941998 (2) Status post tendon repair Current Visit: Yes Status: Acute Code(s): Z98.890 - OTHER SPECIFIED POSTPROCEDURAL STATES SNOMED Code(s): 398850696 (3) Pneumonia Current Visit: Yes Status: Acute Code(s): J18.9 - PNEUMONIA, UNSPECIFIED ORGANISM SNOMED Code(s): 685629292 Plan: The clinical findings are discussed with the patient. The knee immobilizer is opened and slid up the leg a bit and closed snugly. He is to continue current orthopedic care. He is toe-touch weightbearing to the lower extremity with walker. He is to maintain the knee immobilizer at all times. It may be opened daily for skin checks.
--- NOTE | 2021-10-16 11:35 | P.PN ---
Subjective Progress Note Date: 10/16/21 Principal diagnosis: Intractable nausea and vomiting Patient is a poor historian. Patient believes that his coughing and vomiting occur when he is lying down flat. As per nurse patient was sitting in the chair this morning and vomited. Patient states that before he vomits he feels as if there is a bubble in his chest. Patient had a gastric empty study done yesterday that was unremarkable. Patient states that he is only able to drink ensure because it is easier on his stomach. He is afraid to eat anything else. Patient's brother was at bedside and all questions were answered. 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 Psych - Calm and cooperative - Labs CBC & Chem 7: 10/16/21 06:06 10/16/21 06:06 Labs: Abnormal Lab Results - Last 24 Hours (Table) 10/15/21 10/16/21 10/16/21 Range/Units 12:15 06:06 06:06 RBC 4.33 L (4.40-5.60) X 10*6/uL Hgb 11.0 L (13.0-17.0) g/dL Hct 35.3 L (39.6-50.0) % MCH 25.4 L (27.0-32.0) pg MCHC 31.2 L (32.0-37.0) g/dL RDW 14.8 H (11.5-14.5) % Immature Gran # 0.05 H (0.00-0.04) X 10*3/uL Lymphocytes # 0.46 L (0.90-5.00) X 10*3/uL Eosinophils # 0 L (0.04-0.35) X 10*3/uL Carbon Dioxide 29.0 H (20.0-27.5) mmol/L Anion Gap 9.90 L (10.00-18.00) mmol/L BUN 34.5 H (9.0-27.0) mg/dL BUN/Creatinine Ratio 56.46 H (12.00-20.00) Ratio Glucose 120 H (70-110) mg/dL Ur Specific [place] 1.042 H (1.001-1.035) Urine Protein 1+ H (Negative) Urine Ketones 1+ H (Negative) Urine Mucus Rare H (None) /hpf Microbiology - Last 24 Hours (Table) 10/14/21 16:15 Gram Stain - Final Sputum Sputum Culture - Final 10/14/21 03:00 Blood Culture - Preliminary Blood No Growth after 48 hours 10/14/21 03:23 Blood Culture - Preliminary Blood No Growth after 48 hours Assessment and Plan Assessment: Intractable nausea and vomiting -Patient had a computed tomography scan done at the outside hospital that showed hiatal hernia -Etiology could be acid reflux versus peptic ulcer versus other etiology -Gastric empty study is negative -Start Protonix and Tums and Carafate -Diet as tolerated -UA negative for UTI -IV fluids -We'll consult general surgery for EGD Acute hypoxic respiratory failure Aspiration pneumonia -Patient started on cefepime and Flagyl -CT angiogram at the outside facility showed no acute PE but did show findings consistent with possible aspiration in the right upper lobe and in the left lower lobe -Blood cultures negative to date. -Follow up on sputum culture -Patient is on 4 L nasal cannula he is not on oxygen at home. I told nurse to titrate down his oxygen Recent surgery for quads repair of the right lower extremity -Orthopedic surgery following an from that standpoint patient is stable Hypomagnesemia and hypokalemia -Replete as needed Microcytic anemia -Continue ferrous sulfate home medications -Hemoglobin stable and patient denies any GI bleeding DVT prophylaxis on Ellquis per orthopedic recommendations for postop Full code Patient lives alone at home. His brother lives close by and helps to take care of him. 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 Patient will need to go home with home care when medically stable.
[2021-10-16] MEDS: ACETAMINOPHEN TAB 325 MG TAB PO PRN ×2 (11:40→20:45)
[2021-10-16] MEDS: SUCRALFATE 1 GM TAB PO SCH ×3 (11:41→20:46)
[2021-10-16] MEDS ORDERED: IOPAMIDOL CONTRAST (ORAL USE) VIAL PO PRN (12:57)
--- NOTE | 2021-10-16 12:57 | P.GSCN ---
History of Present Illness Consult date: 10/16/21 History of present illness: REASON FOR CONSULTATION: Gastroesophageal reflux disease HISTORY OF PRESENT ILLNESS: The patient is a 66 year old male transferred from outside hospital for pneumonitis and hypoxia including intractable nausea and vomiting. Diagnostic studies at his outside institution demonstrated pneumonitis. General surgery is consulted for intractable nausea and vomiting especially with solid foods. He is status post right knee tendon repair, 09/18. He reports gastroesophageal reflux disease including regurgitation that is worse at night. At the time of my assessment, patient had recent emesis of solid foods in a bucket. He also reports symptoms of fullness and dysphagia of the mid chest. No prior upper endoscopy. He is on Protonix 40 mg twice a day. PAST MEDICAL HISTORY: See list and reviewed PAST SURGICAL HISTORY: See list and reviewed MEDICATIONS: See list and reviewed ALLERGIES: See list and reviewed SOCIAL HISTORY: See list and reviewed FAMILY HISTORY: See list and reviewed REVIEW OF ORGAN SYSTEMS: CONSTITUTIONAL: No fevers or chills. No recent weight loss. EYES: Denies any trouble with vision. No glasses. HEENT: No difficulties with hearing. No nosebleeds. Has difficulty swallowing. RESPIRATORY: Denies pneumonia. Denies any troubles with breathing or dyspnea on exertion. CARDIOVASCULAR: Denies any chest pain, palpitations, or recent heart attacks. GASTROINTESTINAL: Denies fatty food intolerance. Denies change in bowel habits and gas bloat. His iron deficiency. Has gastroesophageal reflux disease. Has iron deficiency anemia. GENITOURINARY: Denies any blood in urine or increased urinary frequency. NEUROLOGICAL: Denies any numbness or tingling along the distal extremities. No seizure disorders or headaches. MUSCULOSKELETAL: Has back pain, stiffness or joint arthritis. Recent fall with SKIN: No current skin cancer. No rash. PSYCHIATRIC: Denies current depression or suicidal thoughts. ENDOCRINE: Denies current thyroid disorders. Denies any blood sugar glucose intolerance. HEME/LYMPHATIC: Denies any lumps and bumps around the neck. No recent deep venous thrombosis. ALLERGY/IMMUNOLOGY: No immunoglobulin therapy. No immune deficiencies. BREAST: Denies current breast lumps, pain or nipple discharge. PHYSICAL EXAM: VITALS: Reviewed CONSTITUTIONAL: Well developed and in no acute distress. EYES: Conjuctivae without sclera icterus. Extraocular movements grossly inta ct. HEAD, EARS, NOSE, THROAT: Moist buccal mucosa. Head is atraumatic, normocephalic. Hears conversational speech. No nasal drainage. NECK: Supple. No JV distention. No thyroidomegaly. RESPIRATORY: Non-labored respirations and equal bilateral excursions. No gross wheezes. CARDIOVASCULAR: Palpable 2+ radial pulses. ABDOMEN: Nontender. No peritonitis. LYMPH: No neck lymphadenopathy. MUSCULOSKELETAL: Has right knee immobilizer. SKIN: Warm and well perfused with good skin turgor. NEUROLOGIC: Cranial nerves II through XII grossly intact. No focal or lateralizing signs. PSYCH: Appropriate affect. Alert and oriented to person, place and time. Displays appropriate insight. CLINCAL LABS: Reviewed. Hgb 11.0 up from 10.4. WBC normal at 6.4. RADIOLOGY: Report reviewed for gastric emptying is normal. ASSESSMENT: 1. Pneumonitis 2. Gastroesophageal reflux disease. 3. Intractable nausea and vomiting. PLAN: 1. Continue protonix. 2. Recommend upper endoscopy. 3. With patient's symptoms, mediastinal mass and a large paraesophageal hiatal hernia cannot be excluded. 4. Recommend CT chest. 5. Patient reports difficulty with soft food diet. He can tolerate liquids. Will downgrade diet to clear liquids. 6. Upper endoscopy pending results of CT chest/abdomen ADVANCE DIRECTIVE: Thank you for this kind consultation. Past Medical History Additional Past Medical History / Comment(s): Fell 9 weeks ago down the stairs. Hx. of anemia. History of Any Multi-Drug Resistant Organisms: None Reported Additional Past Surgical History / Comment(s): EGD, colonoscopy Past Anesthesia/Blood Transfusion Reactions: No Reported Reaction Past Psychological History: No Psychological Hx Reported Smoking Status: Never smoker Past Alcohol Use History: None Reported Past Drug Use History: None Reported - Past Family History Mother Family Medical History: Cancer Father Family Medical History: Cancer Brother(s) Family Medical History: Cancer, Myocardial Infarction ([place]) Additional Family Medical History / Comment(s): 2 brothers w/ hx of cancer, 1 other from [place] Medications and Allergies Home Medications Medication Instructions Recorded Confirmed Type Ferrous Sulfate [Feosol] 325 mg PO DAILY 10/08/21 10/13/21 History Apixaban [Eliquis] 2.5 mg PO BID #24 tab 10/11/21 10/13/21 Rx Ondansetron Odt [Zofran Odt] 4 mg PO Q8HR PRN #14 tab 10/11/21 10/13/21 Rx Sennosides-Docusate Sodium 1 tab PO BID #60 tablet 10/11/21 10/13/21 Rx [Senokot-S] Allergies Allergy/AdvReac Type Severity Reaction Status Date / Time aspirin AdvReac SEE Verified 10/13/21 23:42 COMMENTS Penicillins AdvReac SEE Verified 10/13/21 23:42 COMMENTS oranges Allergy Rash/Hives Uncoded 10/11/21 06:32 Surgical - Exam Vital Signs Temp Pulse Resp BP Pulse Ox 97.8 F 81 16 93/60 91 L 10/13/21 22:28 10/13/21 22:28 10/13/21 22:28 10/13/21 22:28 10/13/21 22:28 Results - Labs 10/16/21 06:06 10/16/21 06:06 Abnormal Lab Results - Last 24 Hours (Table) 10/16/21 10/16/21 Range/Units 06:06 06:06 RBC 4.33 L (4.40-5.60) X 10*6/uL Hgb 11.0 L (13.0-17.0) g/dL Hct 35.3 L (39.6-50.0) % MCH 25.4 L (27.0-32.0) pg MCHC 31.2 L (32.0-37.0) g/dL RDW 14.8 H (11.5-14.5) % Immature Gran # 0.05 H (0.00-0.04) X 10*3/uL Lymphocytes # 0.46 L (0.90-5.00) X 10*3/uL Eosinophils # 0 L (0.04-0.35) X 10*3/uL Carbon Dioxide 29.0 H (20.0-27.5) mmol/L Anion Gap 9.90 L (10.00-18.00) mmol/L BUN 34.5 H (9.0-27.0) mg/dL BUN/Creatinine Ratio 56.46 H (12.00-20.00) Ratio Glucose 120 H (70-110) mg/dL Microbiology - Last 24 Hours (Table) 10/14/21 16:15 Gram Stain - Final Sputum Sputum Culture - Final 10/14/21 03:00 Blood Culture - Preliminary Blood No Growth after 48 hours 10/14/21 03:23 Blood Culture - Preliminary Blood No Growth after 48 hours Diabetes panel 10/16/21 Range/Units 06:06 Sodium 143 (135-145) mmol/L Potassium 3.8 (3.5-5.5) mmol/L Chloride 104 (96-109) mmol/L Carbon Dioxide 29.0 H (20.0-27.5) mmol/L BUN 34.5 H (9.0-27.0) mg/dL Creatinine 0.6 (0.6-1.5) mg/dL Glucose 120 H (70-110) mg/dL Calcium 9.9 (8.7-10.3) mg/dL Calcium panel 10/16/21 Range/Units 06:06 Calcium 9.9 (8.7-10.3) mg/dL Pituitary panel 10/16/21 Range/Units 06:06 Sodium 143 (135-145) mmol/L Potassium 3.8 (3.5-5.5) mmol/L Chloride 104 (96-109) mmol/L Carbon Dioxide 29.0 H (20.0-27.5) mmol/L BUN 34.5 H (9.0-27.0) mg/dL Creatinine 0.6 (0.6-1.5) mg/dL Glucose 120 H (70-110) mg/dL Calcium 9.9 (8.7-10.3) mg/dL Adrenal panel 10/16/21 Range/Units 06:06 Sodium 143 (135-145) mmol/L Potassium 3.8 (3.5-5.5) mmol/L Chloride 104 (96-109) mmol/L Carbon Dioxide 29.0 H (20.0-27.5) mmol/L BUN 34.5 H (9.0-27.0) mg/dL Creatinine 0.6 (0.6-1.5) mg/dL Glucose 120 H (70-110) mg/dL Calcium 9.9 (8.7-10.3) mg/dL
--- NOTE | 2021-10-16 14:22 | CT ---
EXAMINATION TYPE: CT chest abdomen wo con DATE OF EXAM: 10/16/2021 COMPARISON: 10/13/2021 HISTORY: Mediastinal mass CT DLP: 418.8 mGycm Automated exposure control for dose reduction was used. Images obtained from the thoracic inlet to the iliac crests with no contrast. There is some patchy airspace infiltrate in the right upper lobe posterior segment. There is patchy b ilateral basilar pulmonary infiltrates. There is dilated esophagus with fluid level. There is intrath oracic stomach. There is small pericardial effusion. Heart size is normal. No pleural effusion. No me diastinal adenopathy. There are no hilar masses. The liver and spleen are intact. No pancreatic mass. Gallbladder is contracted. There is no adrenal mass. Kidneys have normal size. No hydronephrosis. There are bilateral small navid ical cyst measuring less than 2 cm. No retroperitoneal adenopathy. There is no ascites or free air. N o sign of a bowel obstruction. Thoracic and lumbar spine appear intact. No compression fracture. Sternum is intact. IMPRESSION: Intrathoracic stomach and dilated esophagus measuring up to almost 7 cm in diameter with retained scarlett d material and some oral contrast material. Gastroesophageal junction not well evaluated. The possibi lity of an obstructing distal esophageal mass could not be evaluated. Bilateral patchy pneumonia. Pneumonia not significantly different than recent exam. No significant abnormality within the abdomen.
[2021-10-16] MEDS: metroNIDAZOLE 500 MG TAB PO SCH ×2 (17:46→23:43)
[2021-10-17] MEDS: CEFEPIME 2 GM in SODIUM CHLORIDE 0.9% 100 ML IVPB SCH ×3 (02:51→19:30)
[2021-10-17 06:41] LABS: Basophils % (A) 0 %; Eosinophils % (A) 1 %; HCT 31.5 % (39.0-53.0); Lymphocytes # (A) 0.6 k/uL (1.0-4.8); Lymphocytes % (A) 9 %; MCH 27.2 pg (25.0-35.0); MCHC 33.4 g/dL (31.0-37.0); MCV 81.3 fL (80.0-100.0); Mean Platelet Volume 7.8; Monocytes # (A) 0.4 k/uL (0-1.0); Monocytes % (A) 6 %; Neutrophils # (A) 5.4 k/uL (1.3-7.7); Neutrophils % (A) 84 %; Platelet Count 233 k/uL (150-450); RBC 3.88 m/uL (4.30-5.90); RDW 14.8 % (11.5-15.5); WBC 6.5 k/uL (3.8-10.6)
[2021-10-17 06:52] LABS: African American GFR (CKD) >90 (>60 ml/min/1.73 sqM); Anion Gap 3 mmol/L; Blood Urea Nitrogen 29 mg/dL (9-20); Calcium 8.6 mg/dL (8.4-10.2); Carbon Dioxide 31 mmol/L (22-30); Chloride 108 mmol/L (98-107); Glucose 96 mg/dL (74-99); Magnesium 1.8 mg/dL (1.6-2.3); Non-African American GFR(CKD) >90 (>60 ml/min/1.73 sqM); Potassium 3.4 mmol/L (3.5-5.1); Sodium 142 mmol/L (137-145)
[2021-10-17 06:57] LABS: HGB 10.5 gm/dL (13.0-17.5)
[2021-10-17] MEDS: IPRATROPIUM-ALBUTEROL 3 ML NEB INHALATION SCH ×4 (07:30→20:38)
[2021-10-17] MEDS: SUCRALFATE 1 GM TAB PO SCH (08:08)
[2021-10-17] MEDS: metroNIDAZOLE 500 MG TAB PO SCH (08:08)
[2021-10-17] MEDS: FERROUS SULFATE 325 MG TAB PO SCH (08:08)
[2021-10-17] MEDS: APIXABAN 2.5 MG TABLET PO SCH (08:08)
[2021-10-17] MEDS: PANTOPRAZOLE 40 MG TABLET PO SCH (08:08)
[2021-10-17] MEDS: ACETAMINOPHEN TAB 325 MG TAB PO PRN (08:08)
[2021-10-17] MEDS: SENNOSIDES-DOCUSATE SODIUM 1 EACH TAB PO SCH ×2 (08:08→21:01)
--- NOTE | 2021-10-17 10:41 | P.PN ---
Subjective Progress Note Date: 10/17/21 Principal diagnosis: Acute aspiration pneumonia. Status post quadriceps repair right knee. This is a 66-year-old male who is status post quad repair of the right knee. 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 He was discharged to home with family. I received a call from his family member yesterday stating that he was vomiting often and unable to keep liquids down. I instructed family to take him to the emergency department. He was transferred to [facility] last evening with dehydration and aspiration pneumonia. He is admitted to internal medicine and we are consultation for orthopedic follow-up regarding his right knee. 10/15/2021: The patient is stable from an orthopedic standpoint. He has no new complaints or concerns today. He is tolerating his knee immobilizer well. Vital signs and labs are stable. 10/16/2021: The patient is doing well. He is sitting up in a chair with no new complaints or concerns today. Vital signs are stable. 10/17/2021. The patient is stable from an orthopedic standpoint. His family is present at bedside today. He continues to have nausea and vomiting. He states he is unable to keep food down. He is scheduled for an EGD tomorrow. Objective - Vital Signs Vital signs: Vital Signs Temp 98.1 F 10/17/21 07:46 Pulse 94 10/17/21 07:46 Resp 18 10/17/21 08:07 BP 89/55 10/17/21 07:46 Pulse Ox 93 L 10/17/21 07:46 FiO2 Intake & Output 10/16/21 10/17/21 10/17/21 18:59 06:59 18:59 Output Total 3500 200 Balance -3500 -200 Output: Urine 200 Emesis 3500 Other: Voiding Method Urinal Urinal Urinal # Voids 6 4 # Bowel Movements 3 - Exam This is a pleasant 66-year-old male in no acute distress. He is alert and oriented 3. Exam of the right lower extremity reveals that the knee immobilizer is intact and is in good position. He has full foot and ankle motion without difficulty or pain. Neurovascular status to the lower extremity is intact. - Labs CBC & Chem 7: 10/17/21 05:59 10/17/21 05:59 Labs: Abnormal Lab Results - Last 24 Hours (Table) 10/17/21 10/17/21 Range/Units 05:59 05:59 RBC 3.88 L (4.30-5.90) m/uL Hgb 10.5 L D (13.0-17.5) gm/dL Hct 31.5 L (39.0-53.0) % Lymphocytes # 0.6 L (1.0-4.8) k/uL Potassium 3.4 L (3.5-5.1) mmol/L Chloride 108 H (98-107) mmol/L Carbon Dioxide 31 H (22-30) mmol/L BUN 29 H (9-20) mg/dL Creatinine 0.49 L (0.66-1.25) mg/dL Microbiology - Last 24 Hours (Table) 10/14/21 03:23 Blood Culture - Preliminary Blood No Growth after 72 hours 10/14/21 03:00 Blood Culture - Preliminary Blood No Growth after 72 hours 10/14/21 16:15 Gram Stain - Final Sputum Sputum Culture - Final Assessment and Plan (1) Quadriceps muscle rupture Current Visit: Yes Status: Acute Code(s): S76.119A - STRAIN OF UNSP QUADRICEPS MUSCLE, FASCIA AND TENDON, INIT SNOMED Code(s): 747069167 (2) Status post tendon repair Current Visit: Yes Status: Acute Code(s): Z98.890 - OTHER SPECIFIED POSTPROCEDURAL STATES SNOMED Code(s): 457340287 (3) Pneumonia Current Visit: Yes Status: Acute Code(s): J18.9 - PNEUMONIA, UNSPECIFIED ORGANISM SNOMED Code(s): 464249707 Plan: The clinical findings are discussed with the patient. He is to continue current orthopedic care. He is toe-touch weightbearing to the lower extremity with walker. He is to maintain the knee immobilizer at all times. It may be opened daily for skin checks.
--- NOTE | 2021-10-17 11:22 | P.PN ---
Subjective Progress Note Date: 10/17/21 Principal diagnosis: Intractable nausea and vomiting Patient stated that he is not able to keep anything down. Patient did have a computed tomography scan of his chest yesterday that showed intrathoracic stomach and dilated esophagus about 7 cm and the gastroesophageal junction could not be visualized so malignancy in the distal esophagus could not be excluded. Objective - Vital Signs Vital signs: Vital Signs Temp 98.1 F 10/17/21 07:46 Pulse 90 10/17/21 11:07 Resp 18 10/17/21 11:07 BP 89/55 10/17/21 07:46 Pulse Ox 93 L 10/17/21 07:46 FiO2 Intake & Output 10/16/21 10/17/21 10/17/21 18:59 06:59 18:59 Output Total 3500 200 Balance -3500 -200 Output: Urine 200 Emesis 3500 Other: Voiding Method Urinal Urinal Urinal # Voids 6 4 # Bowel Movements 3 - Exam General examination - Alert and Oriented 3 in NAD, appears chronically debilitated Heart - + S1S2 no murmurs Lungs -diminished breath sounds bilaterally Abdomen soft NT ND Extremities - No edema [employer] - Moving all 4 extremities spontaneously Psych - Calm and cooperative - Labs CBC & Chem 7: 10/17/21 05:59 10/17/21 05:59 Labs: Abnormal Lab Results - Last 24 Hours (Table) 10/17/21 10/17/21 Range/Units 05:59 05:59 RBC 3.88 L (4.30-5.90) m/uL Hgb 10.5 L D (13.0-17.5) gm/dL Hct 31.5 L (39.0-53.0) % Lymphocytes # 0.6 L (1.0-4.8) k/uL Potassium 3.4 L (3.5-5.1) mmol/L Chloride 108 H (98-107) mmol/L Carbon Dioxide 31 H (22-30) mmol/L BUN 29 H (9-20) mg/dL Creatinine 0.49 L (0.66-1.25) mg/dL Microbiology - Last 24 Hours (Table) 10/14/21 03:23 Blood Culture - Preliminary Blood No Growth after 72 hours 10/14/21 03:00 Blood Culture - Preliminary Blood No Growth after 72 hours 10/14/21 16:15 Gram Stain - Final Sputum Sputum Culture - Final Assessment and Plan Assessment: Intractable nausea and vomiting -Differential does include acid reflux secondary to large hiatal hernia versus achalasia versus esophageal malignancy -CT chest showed intrathoracic stomach and dilated esophagus and the gastroesophageal junction could not be visualized so underlying malignancy cannot be excluded -Patient is scheduled for EGD tomorrow; if EGD is negative for malignancy then we'll consider GI consult which is available next week. -IV Protonix twice a day -Resume clear liquid diet Acute hypoxic respiratory failure Aspiration pneumonia -Patient started on cefepime and Flagyl -CT chest shows bilateral patchy infiltrate suspect aspiration -Blood cultures negative to date. -Follow up on sputum culture -Patient is on 2 L nasal cannula he is not on oxygen at home. Continue to wean O2. -Patient not in any respiratory distress Recent surgery for quads repair of the right lower extremity -Orthopedic surgery following and from their standpoint patient is stable -On previous admission patient was discharge on Eliquis by orthopedic surgery for DVT prophylaxis -Patient not able to tolerate oral meds so we'll switch to Lovenox at prophylactic dose Hypomagnesemia and hypokalemia -Replete as needed Microcytic anemia -Holding ferrous sulfate as patient not able to tolerate his oral meds -Hemoglobin stable and patient denies any GI bleeding DVT prophylaxis on Ellquis per orthopedic recommendations for postop Full code Patient lives alone at home. His brother lives close by and helps to take care of him. 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 Patient will need to go home with home care when medically stable. Anticipated discharge: Depending on hospital course
--- NOTE | 2021-10-17 12:50 | P.PN ---
Subjective Progress Note Date: 10/17/21 CHIEF COMPLAINT: Gastroesophageal reflux disease HISTORY OF PRESENT ILLNESS: The patient is a 66 year old male transferred from outside hospital for pneumonitis and hypoxia including intractable nausea and vomiting. Yesterday, patient reports persistent intractable nausea vomiting especially with ice cream. Additional studies such as CT chest and abdomen were obtained for esophageal mass causing obstruction. Patient also reports symptoms has likely been ongoing for months. REVIEW OF ORGAN SYSTEMS: HEENT: No difficulties with hearing. No nosebleeds. Has difficulty swallowing. RESPIRATORY: Recent aspiration pneumonitis on outside computed tomography scan GASTROINTESTINAL: Denies fatty food intolerance. Denies change in bowel habits and gas bloat. His iron deficiency. Has gastroesophageal reflux disease. Has iron deficiency anemia. MUSCULOSKELETAL: Has back pain, stiffness or joint arthritis. Status post right knee tendon repair PHYSICAL EXAM: VITALS: Reviewed CONSTITUTIONAL: Well developed and in no acute distress. EYES: Conjuctivae without sclera icterus. Extraocular movements grossly intact. HEAD, EARS, NOSE, THROAT: Moist buccal mucosa. Head is atraumatic, normocep halic. Hears conversational speech. No nasal drainage. RESPIRATORY: Non-labored respirations and equal bilateral excursions. No gross wheezes. CARDIOVASCULAR: Palpable 2+ radial pulses. ABDOMEN: Nontender. No peritonitis. MUSCULOSKELETAL: Has right knee immobilizer. SKIN: Warm and well perfused with good skin turgor. NEUROLOGIC: Cranial nerves II through XII grossly intact. No focal or la teralizing signs. PSYCH: Appropriate affect. Alert and oriented to person, place and time. Displays appropriate insight. CLINCAL LABS: Reviewed. Hgb 11.0 up from 10.4. WBC normal at 6.4. IMAGE: CT chest and abdomen independent review demonstrates esophageal obstruction with dilated esophagus at the GE junction. This is my independent interpretation. RADIOLOGY: Report reviewed CT chest abdomen with intrathoracic stomach and dilation of esophagus 7 cm with retained food material. Possibly obstructing distal esophageal mass. Bilateral patchy pneumonia ASSESSMENT: 1. Pneumonitis 2. Gastroesophageal reflux disease. 3. Intractable nausea and vomiting. 4. Paraesophageal hiatal hernia, intrathoracic stomach 5. Esophageal obstruction PLAN: 1. Will proceed with upper endoscopy possible dilation 2. Downgrade diet to nothing by mouth except ice chips 3. Patient high risk for aspiration. Upper endoscopy under general anesthetic described to prevent further aspiration during procedure. Objective - Vital Signs Vital signs: Vital Signs Temp 98.1 F 10/17/21 07:46 Pulse 90 10/17/21 11:07 Resp 18 10/17/21 11:07 BP 89/55 10/17/21 07:46 Pulse Ox 93 L 10/17/21 07:46 FiO2 Intake & Output 10/16/21 10/17/21 10/17/21 18:59 06:59 18:59 Output Total 3500 200 Balance -3500 -200 Output: Urine 200 Emesis 3500 Other: Voiding Method Urinal Urinal Urinal # Voids 6 4 # Bowel Movements 3 - Labs CBC & Chem 7: 10/17/21 05:59 10/17/21 05:59 Labs: Abnormal Lab Results - Last 24 Hours (Table) 10/17/21 10/17/21 Range/Units 05:59 05:59 RBC 3.88 L (4.30-5.90) m/uL Hgb 10.5 L D (13.0-17.5) gm/dL Hct 31.5 L (39.0-53.0) % Lymphocytes # 0.6 L (1.0-4.8) k/uL Potassium 3.4 L (3.5-5.1) mmol/L Chloride 108 H (98-107) mmol/L Carbon Dioxide 31 H (22-30) mmol/L BUN 29 H (9-20) mg/dL Creatinine 0.49 L (0.66-1.25) mg/dL Microbiology - Last 24 Hours (Table) 10/14/21 03:23 Blood Culture - Preliminary Blood No Growth after 72 hours 10/14/21 03:00 Blood Culture - Preliminary Blood No Growth after 72 hours 10/14/21 16:15 Gram Stain - Final Sputum Sputum Culture - Final
[2021-10-17] MEDS: metroNIDAZOLE-NS PMX 500 MG in SALINE 1 100ML.BAG IVPB SCH ×2 (16:49→23:46)
[2021-10-17] MEDS ORDERED: ENOXAPARIN 80 MG/0.8 ML SYRINGE SQ SCH (21:00)
[2021-10-17] MEDS: PANTOPRAZOLE 40 MG/10 ML VIAL IVP SCH (22:35)
[2021-10-18] MEDS: CEFEPIME 2 GM in SODIUM CHLORIDE 0.9% 100 ML IVPB SCH ×3 (02:53→20:37)
[2021-10-18] MEDS ORDERED: LIDOCAINE 2% INJ 20 MG/ML (2 ML VIAL) ONE (07:28)
[2021-10-18] MEDS ORDERED: SUCCINYLCHOLINE CHLORIDE 200 MG/10 ML VIAL IV ONE (07:28)
[2021-10-18] MEDS ORDERED: IV FLUID CONTINUATION 900 ML IV ONE (07:28)
[2021-10-18] MEDS ORDERED: PROPOFOL 10 MG/ML 20 ML VIAL IV ONE (07:28)
--- NOTE | 2021-10-18 07:38 | P.HPADDEND ---
H&P Addendum H&P Addendum Date: 10/18/21 Patient had intractable nausea and vomiting yesterday despite nothing by mouth last night. Upper endoscopy under general induction described to protect his airway. Possible dilation reviewed.
--- NOTE | 2021-10-18 08:48 | P.PCN ---
Date of Procedure: 10/18/21 Description of Procedure: PREOPERATIVE DIAGNOSIS: Intractable nausea or vomiting Abnormal computed tomography scan for esophageal obstruction POSTOPERATIVE DIAGNOSIS: Esophageal mass Complete esophageal obstruction due to esophageal Retained foreign body, food Gastrointestinal bleeding from esophageal mass OPERATION: Esophagogastroduodenoscopy with removal of foreign body using small and large Velasquez nets Esophagogastroduodenoscopy with biopsies along antrum. SURGEON: Dari Sargent MD ANESTHESIA: GETA INDICATIONS: The patient is a 66-year-old male who presents with intractable nausea and vomiting. CT of the chest and abdomen demonstrated a normal obstruction of the esophagus. General endotracheal intubation were proposed for obstructive mass ons computed tomography scan. Benefits and risks of the procedure were described. Informed consent was obtained. DESCRIPTION: The patient was brought into the endoscopy suite and laid in the supine position. General endotracheal intubation was performed. An Olympus gastroscope was passed where moderate food was found along his vocal cords i ncluding throughout the esophagus. Suctioning was performed to get to the distal esophagus. Upper esophageal sphincter was at 12 cm from the incisors. Squamocolumnar junction was at 22 cm from the incisors with complete obstruction with easily friable polypoid mass with bleeding at 32 cm from the incisors. Moderate retained food was removed using multiple passes of small and large Velasquez nets. Despite multiple attempts the scope could not pass as 3 mm opening to the distal esophagus was found however unable to intubate due to obstructive mass. Additional findings are listed below. Biopsies with cold forceps were obtained of the polypoid mass. FINDINGS: Squamocolumnar junction 22 cm from the incisors. Obstructive mass at 32 cm from the incisor, polypoid easily friable bleeding Moderate retained food at the vocal cords and throughout the esophagus Upper esophageal sphincter at 12 cm from the incisors Complete esophageal obstruction with 3 mm orifice RECOMMENDATIONS: 1. Complete nothing by mouth status 2. Recommend transfer to tertiary care center for complete obstruction 3. Start TPN 4. Avoid oral anticoagulants
[2021-10-18] MEDS: IPRATROPIUM-ALBUTEROL 3 ML NEB INHALATION SCH ×4 (08:50→19:41)
[2021-10-18 09:21] LABS: Basophils # (A) 0.02 X 10*3/uL (0.00-0.10); Basophils % (A) 0.4 %; Eosinophils # (A) 0.14 X 10*3/uL (0.04-0.35); Eosinophils % (A) 2.7 %; HCT 31.4 % (39.6-50.0); HGB 9.5 g/dL (13.0-17.0); Immature Grans, Automated 1.7 %; Lymphocytes # (A) 0.65 X 10*3/uL (0.90-5.00); Lymphocytes % (A) 12.3 %; MCHC 30.3 g/dL (32.0-37.0); MCV 82.6 fL (80.0-97.0); Mean Platelet Volume 10.2 fL (9.5-12.2); Monocytes # (A) 0.57 X 10*3/uL (0.20-1.00); Monocytes % (A) 10.8 %; NRBC Per 100 WBC 0 /100 WBCS (0.0-0.0); Neutrophils % (A) 72.1 %; Platelet Count 246 X 10*3/uL (140-440); WBC 5.27 X 10*3/uL (4.50-10.00)
[2021-10-18] MEDS: SENNOSIDES-DOCUSATE SODIUM 1 EACH TAB PO SCH ×2 (10:04→19:04)
[2021-10-18 11:05] LABS: African American GFR (CKD) 132.2 (60.0-200.0); Anion Gap 5.5 mmol/L (10.00-18.00); Blood Urea Nitrogen 21.6 mg/dL (9.0-27.0); Calcium 8.3 mg/dL (8.7-10.3); Carbon Dioxide 29.1 mmol/L (20.0-27.5); Magnesium 1.9 mg/dL (1.5-2.4); Potassium 3.6 mmol/L (3.5-5.5)
[2021-10-18] MEDS: ENOXAPARIN 40 MG/0.4 ML SYRINGE SQ SCH (11:28)
[2021-10-18] MEDS: metroNIDAZOLE-NS PMX 500 MG in SALINE 1 100ML.BAG IVPB SCH ×3 (11:52→20:37)
[2021-10-18] MEDS: PANTOPRAZOLE 40 MG/10 ML VIAL IVP SCH ×2 (11:52→20:36)
--- NOTE | 2021-10-18 12:03 | P.PN ---
Subjective Progress Note Date: 10/18/21 CHIEF COMPLAINT: Gastroesophageal reflux disease HISTORY OF PRESENT ILLNESS: The patient is a 66 year old male transferred from outside hospital for pneumonitis and hypoxia including intractable nausea and vomiting. EGD completed demonstrating complete esophageal obstruction due to esophageal mass easily friable with bleed. Family is at bedside gives additional history that patient's symptoms has been going on for most of the year and that the patient has been taking chronic Motrin and losing 50+ pounds this year. REVIEW OF ORGAN SYSTEMS: HEENT: No difficulties with hearing. No nosebleeds. Has difficulty swallowing. RESPIRATORY: Recent aspiration pneumonitis on outside computed tomography scan GASTROINTESTINAL: Has gastroesophageal reflux disease. Has iron deficiency anemia. MUSCULOSKELETAL: Has back pain, stiffness or joint arthritis. Status post right knee tendon repair PHYSICAL EXAM: VITALS: Reviewed CONSTITUTIONAL: Well developed and in no acute distress. EYES: Conjuctivae without sclera icterus. Extraocular movements grossly intact. HEAD, EARS, NOSE, THROAT: Moist buccal mucosa. Head is atraumatic, normocephalic. Hears conversational speech. No nasal drainage. RESPIRATORY: Non-labored respirations and equal bilateral excursions. No gross wheezes. CARDIOVASCULAR: Palpable 2+ radial pulses. ABDOMEN: Nontender. No peritonitis. MUSCULOSKELETAL: Has right knee immobilizer. SKIN: Warm and well perfused with good skin turgor. NEUROLOGIC: Cranial nerves II through XII grossly intact. No focal or lateralizing signs. PSYCH: Appropriate affect. Alert and oriented to person, place and time CLINCAL LABS: Reviewed. Hgb 11.0 up from 10.4, now 9.5. ASSESSMENT: 1. Pneumonitis 2. Gastroesophageal reflux disease. 3. Intractable nausea and vomiting. 4. Paraesophageal hiatal hernia, intrathoracic stomach 5. Esophageal obstruction 6. Esophageal mass PLAN: 1. Patient is status post upper endoscopy with removal of foreign body due to food impaction. 2. Strict nothing by mouth advised including avoiding oral medications as he has complete obstruction 3. Discussion with admitting attending includes transfer to tertiary care center for management of complete esophageal obstruction 4. In the interim, PICC line TPN described Objective - Vital Signs Vital signs: Vital Signs Temp 97.1 F L 10/18/21 08:27 Pulse 77 10/18/21 11:39 Resp 16 10/18/21 09:28 BP 98/60 10/18/21 09:28 Pulse Ox 96 10/18/21 09:28 FiO2 Intake & Output 10/17/21 10/18/21 10/18/21 18:59 06:59 18:59 Intake Total 800 Output Total 620 1170 200 Balance -620 -1170 600 Intake: IV 800 Output: Urine 620 1170 200 Other: Voiding Method Urinal Urinal # Voids 4 - Labs CBC & Chem 7: 10/18/21 06:17 10/18/21 06:17 Labs: Abnormal Lab Results - Last 24 Hours (Table) 10/18/21 10/18/21 Range/Units 06:17 06:17 RBC 3.80 L (4.40-5.60) X 10*6/uL Hgb 9.5 L (13.0-17.0) g/dL Hct 31.4 L (39.6-50.0) % MCH 25.0 L (27.0-32.0) pg MCHC 30.3 L (32.0-37.0) g/dL RDW 15.0 H (11.5-14.5) % Immature Gran # 0.09 H (0.00-0.04) X 10*3/uL Lymphocytes # 0.65 L (0.90-5.00) X 10*3/uL Sodium 146 H (135-145) mmol/L Chloride 112 H (96-109) mmol/L Carbon Dioxide 29.1 H (20.0-27.5) mmol/L Anion Gap 5.50 L (10.00-18.00) mmol/L Creatinine 0.5 L (0.6-1.5) mg/dL BUN/Creatinine Ratio 45.00 H (12.00-20.00) Ratio Calcium 8.3 L (8.7-10.3) mg/dL Microbiology - Last 24 Hours (Table) 10/14/21 03:00 Blood Culture - Preliminary Blood No Growth after 96 hours 10/14/21 03:23 Blood Culture - Preliminary Blood No Growth after 96 hours
--- NOTE | 2021-10-18 14:25 | P.DS ---
Providers Date of admission: 10/14/21 01:14 Expected date of discharge: 10/18/21 Attending physician: Aren Drew MD Consults: 10/14/21 05:29 Consult Physician Routine Consulting Provider: Joshua Alfaro Consult Reason/Comments: performed recent right LE quad surgery Do you want consulting provider notified?: Yes, Notify in am 10/16/21 11:28 Consult Physician Routine Consulting Provider: Dari Sargent Consult Reason/Comments: GERD, rule out peptic ulcer disease, haital hernia Do you want consulting provider notified?: Yes 10/17/21 12:44 Consult Physician Routine Consulting Provider: [facility] Consult Reason/Comments: GETA for EGD due to aspiration pneumonitis Do you want consulting provider notified?: Yes Primary care physician: [facility] Hospital Course: 66-year-old male denies any past medical history Patient is a transfer from [facility], for hypoxemia secondary to what is thought to be aspiration pneumonitis. Patient recently underwent right lower extremity quadricep repair few days ago (which was an injury secondary to an accidental fall off the stairs couple months ago), he went home on Monday and reports frequent episodes of nausea vomiting despite taking his medications. He reports waking up with vomiting all around him in bed his brother grew concerned and decided to take him to the hospital for evaluation. EMS found him hypoxic in the mid 80s put him on supplemental oxygen. Patient indicated that he was not taking his liquids as prescribed for DVT prophylaxis postsurgery. CT angios the chest was performed at [facility] found no evidence of PE, however did show evidence of patchy infiltrates over the posteriorly in the right upper lobe and in the left lower lobe which was suggestive of possible aspiration. Patient was found to have increasing requirement of oxygen he was placed on nonrebreather 15 L. And then transferred to our facility for further care. Patient was started on cefepime and Flagyl for concerns of aspiration pneumonia. He was given supplemental O2 to maintain O2 saturation greater than 92%. With regard to his intractable nausea and vomiting, he underwent gastric emptying study which was within normal limits. CT chest and abdomen showed dilated esophagus measuring up to 7 cm in diameter with retained food material and oral contrast. Gen. surgery was consulted and recommended EGD. EGD showed obstructive mass at 32 cm from the incisor, polypoid, easily friable. Surgery recommended transfer to a tertiary center for higher level of care. The case was discussed with Dr. Lee Parkinson at [facility] who graciously accepted the patient for transfer. Case was also discussed with Hilario fuentes POA who agreed to the transfer. Patient is currently pending bed availability and transportation. General: [non toxic], [no distress], [appears at stated age] Derm: [warm], [dry] Head: [atraumatic], [normocephalic], [symmetric] Eyes: [EOMI], [no lid lag], [anicteric sclera] Mouth: [no lip lesion], [mucus membranes moist] Cardiovascular: [S1S2 reg], [no murmur] Lungs: [Decreased breath sounds bilateral], [no rhonchi, no rales] Abdominal: [soft], [ nontender to palpation] Ext: [no gross muscle atrophy], [no edema], [no contractures] Psych: [Alert], [oriented], [appropriate affect] Discharge diagnosis: Intractable nausea and vomiting Esophageal mass Acute hypoxic respiratory failure secondary to aspiration pneumonia Normocytic anemia Resolved: Hypomagnesemia, hypokalemia This complex discharge took about 60 minutes to complete. Pertinent Studies: Chest x-ray Gastric emptying study Chest and abdomen CT Procedures: EGD Patient Condition at Discharge: Stable Plan - Discharge Summary Discharge Rx Participant: Yes New Discharge Prescriptions: No Action Ferrous Sulfate [Feosol] 325 mg PO DAILY Apixaban [Eliquis] 2.5 mg PO BID #24 tab Sennosides-Docusate Sodium [Senokot-S] 1 tab PO BID #60 tablet Ondansetron Odt [Zofran Odt] 4 mg PO Q8HR PRN #14 tab PRN Reason: Nausea Discharge Medication List Ferrous Sulfate [Feosol] 325 mg PO DAILY 10/08/21 [History] Apixaban [Eliquis] 2.5 mg PO BID #24 tab 10/11/21 [Rx] Ondansetron Odt [Zofran Odt] 4 mg PO Q8HR PRN #14 tab 10/11/21 [Rx] Sennosides-Docusate Sodium [Senokot-S] 1 tab PO BID #60 tablet 10/11/21 [Rx] Follow up Appointment(s)/Referral(s): [facility] [[facility]-STA[facility]] - ([facility] will call you to arrange a visit.) Ani Diaz, PAC [Primary Care Provider] - 1-2 days
--- NOTE | 2021-10-18 14:39 | P.PN ---
Subjective Progress Note Date: 10/18/21 Principal diagnosis: Acute aspiration pneumonia. Status post quadriceps repair right knee. This is a 66-year-old male who is status post quad repair of the right knee. 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 He was discharged to home with family. I received a call from his family member yesterday stating that he was vomiting often and unable to keep liquids down. I instructed family to take him to the emergency department. He was transferred to [facility] last evening with dehydration and aspiration pneumonia. He is admitted to internal medicine and we are consultation for orthopedic follow-up regarding his right knee. 10/15/2021: The patient is stable from an orthopedic standpoint. He has no new complaints or concerns today. He is tolerating his knee immobilizer well. Vital signs and labs are stable. 10/16/2021: The patient is doing well. He is sitting up in a chair with no new complaints or concerns today. Vital signs are stable. 10/17/2021. The patient is stable from an orthopedic standpoint. His family is present at bedside today. He continues to have nausea and vomiting. He states he is unable to keep food down. He is scheduled for an EGD tomorrow. 10/18/2021: Patient's EGD shows an obstruction in the esophagus. He is being transferred to [facility] for further treatment. His dressing is changed today. Vital signs are stable. Objective - Vital Signs Vital signs: Vital Signs Temp 97.1 F L 10/18/21 08:27 Pulse 77 10/18/21 11:39 Resp 16 10/18/21 09:28 BP 98/60 10/18/21 09:28 Pulse Ox 96 10/18/21 09:28 FiO2 Intake & Output 10/17/21 10/18/21 10/18/21 18:59 06:59 18:59 Intake Total 800 Output Total 620 1170 200 Balance -620 -1170 600 Intake: IV 800 Output: Urine 620 1170 200 Other: Voiding Method Urinal Urinal # Voids 4 - Exam This is a pleasant 66-year-old male in no acute distress. He is alert and oriented 3. Exam of the right lower extremity reveals that the knee immobilizer is intact and is in good position. Optiform dressing is changed today. [place] are intact. There is no erythema or ecchymosis. There is generalized edema to the lower leg. He has full foot and ankle motion without difficulty or pain. Neurovascular status to the lower extremity is intact. - Labs CBC & Chem 7: 10/18/21 06:17 10/18/21 06:17 Labs: Abnormal Lab Results - Last 24 Hours (Table) 10/18/21 10/18/21 Range/Units 06:17 06:17 RBC 3.80 L (4.40-5.60) X 10*6/uL Hgb 9.5 L (13.0-17.0) g/dL Hct 31.4 L (39.6-50.0) % MCH 25.0 L (27.0-32.0) pg MCHC 30.3 L (32.0-37.0) g/dL RDW 15.0 H (11.5-14.5) % Immature Gran # 0.09 H (0.00-0.04) X 10*3/uL Lymphocytes # 0.65 L (0.90-5.00) X 10*3/uL Sodium 146 H (135-145) mmol/L Chloride 112 H (96-109) mmol/L Carbon Dioxide 29.1 H (20.0-27.5) mmol/L Anion Gap 5.50 L (10.00-18.00) mmol/L Creatinine 0.5 L (0.6-1.5) mg/dL BUN/Creatinine Ratio 45.00 H (12.00-20.00) Ratio Calcium 8.3 L (8.7-10.3) mg/dL Microbiology - Last 24 Hours (Table) 10/14/21 03:00 Blood Culture - Preliminary Blood No Growth after 96 hours 10/14/21 03:23 Blood Culture - Preliminary Blood No Growth after 96 hours Assessment and Plan (1) Quadriceps muscle rupture Current Visit: Yes Status: Acute Code(s): S76.119A - STRAIN OF UNSP QUADRICEPS MUSCLE, FASCIA AND TENDON, INIT SNOMED Code(s): 139713158 (2) Status post tendon repair Current Visit: Yes Status: Acute Code(s): Z98.890 - OTHER SPECIFIED POSTPROCEDURAL STATES SNOMED Code(s): 683413825 (3) Pneumonia Current Visit: Yes Status: Acute Code(s): J18.9 - PNEUMONIA, UNSPECIFIED ORGANISM SNOMED Code(s): 669981294 Plan: The clinical findings are discussed with the patient. His dressing is changed. He is to continue in the current knee immobilizer. Ginny may be removed 2 weeks postoperatively which would be 10/25/2021 and apply Steri-Strips. He is follow-up in our office when he is discharged from the hospital.
[2021-10-18 14:40] VITALS: BMI 31.3
[2021-10-19] MEDS: metroNIDAZOLE-NS PMX 500 MG in SALINE 1 100ML.BAG IVPB SCH ×3 (02:49→20:27)
[2021-10-19 03:23] LABS: Albumin 2.5 g/dL (3.8-4.9); Triglycerides 56.8 mg/dL (0.00-149.00)
[2021-10-19] MEDS: CEFEPIME 2 GM in SODIUM CHLORIDE 0.9% 100 ML IVPB SCH ×3 (04:54→21:43)
[2021-10-19 07:28] LABS: African American GFR (CKD) >90 (>60 ml/min/1.73 sqM); Anion Gap 2 mmol/L; Blood Urea Nitrogen 19 mg/dL (9-20); Calcium 7.4 mg/dL (8.4-10.2); Carbon Dioxide 27 mmol/L (22-30); Chloride 113 mmol/L (98-107); Glucose 83 mg/dL (74-99); Magnesium 1.8 mg/dL (1.6-2.3); Non-African American GFR(CKD) >90 (>60 ml/min/1.73 sqM); Phosphorus 1.2 mg/dL (2.5-4.5); Potassium 3.7 mmol/L (3.5-5.1); Sodium 142 mmol/L (137-145)
[2021-10-19 07:42] LABS: Ionized Calcium 4.5 mg/dL (4.5-5.3)
[2021-10-19] MEDS: IPRATROPIUM-ALBUTEROL 3 ML NEB INHALATION SCH ×4 (08:45→20:24)
[2021-10-19] MEDS: PANTOPRAZOLE 40 MG/10 ML VIAL IVP SCH ×3 (09:54→23:20)
[2021-10-19] MEDS: SENNOSIDES-DOCUSATE SODIUM 1 EACH TAB PO SCH (09:54)
[2021-10-19] MEDS: ENOXAPARIN 40 MG/0.4 ML SYRINGE SQ SCH (10:24)
--- NOTE | 2021-10-19 12:15 | P.PN ---
Subjective Progress Note Date: 10/19/21 Principal diagnosis: Dysphagia Patient was seen and examined. No acute events overnight. Complains of tiredness. Currently NPO. Accepted at [facility], awaiting bed and transporta tion. Objective - Vital Signs Vital signs: Vital Signs Temp 98 F 10/19/21 10:15 Pulse 68 10/19/21 08:58 Resp 21 10/19/21 10:15 BP 94/53 10/19/21 10:15 Pulse Ox 96 10/19/21 10:15 FiO2 Intake & Output 10/18/21 10/19/21 10/19/21 18:59 06:59 18:59 Intake Total 800 Output Total 350 2 Balance 450 -2 Weight 72.7 kg Intake: IV 800 Output: Urine 350 Emesis 2 Other: Voiding Method Urinal Urinal - Exam General: [non toxic], [no distress], [appears at stated age] Derm: [warm], [dry] Head: [atraumatic], [normocephalic], [symmetric] Eyes: [EOMI], [no lid lag], [anicteric sclera] Mouth: [no lip lesion], [mucus membranes moist] Cardiovascular: [S1S2 reg], [no murmur] Lungs: [Decreased breath sounds bilateral], [no rhonchi, no rales] Abdominal: [soft], [ nontender to palpation] Ext: [no gross muscle atrophy], [no edema], [no contractures] Psych: [Alert], [oriented], [appropriate affect] - Labs CBC & Chem 7: 10/18/21 06:17 10/19/21 06:28 Labs: Abnormal Lab Results - Last 24 Hours (Table) 10/18/21 10/19/21 Range/Units 15:24 06:28 Chloride 113 H (98-107) mmol/L Creatinine 0.50 L (0.66-1.25) mg/dL Calcium 7.4 L (8.4-10.2) mg/dL Phosphorus 0.5 L* 1.2 L (2.4-5.1) mg/dL Albumin 2.5 L (3.8-4.9) g/dL Microbiology - Last 24 Hours (Table) 10/14/21 03:23 Blood Culture - Preliminary Blood No Growth after 120 hours 10/14/21 03:00 Blood Culture - Preliminary Blood No Growth after 120 hours Assessment and Plan Assessment: Intractable nausea and vomiting Esophageal mass Acute hypoxic respiratory failure secondary to aspiration pneumonia Normocytic anemia Resolved: Hypomagnesemia, hypokalemia Awaiting bed at [facility] for transfer. Continue NPO status. Cefepime and Flagyl IV for aspiration PNA. Supplemental O2 to maintain O2 saturation > 92%. Albuterol neb PRN for SOB/wheezing. Lovenox for DVT prophylaxis.
--- NOTE | 2021-10-19 14:26 | P.PN ---
Subjective Progress Note Date: 10/19/21 CHIEF COMPLAINT: GERD HISTORY OF PRESENT ILLNESS: The patient is a 66 year old male transferred from outside hospital for pneumonitis and hypoxia including intractable nausea and vomiting. EGD completed demonstrating complete esophageal obstruction due to esophageal mass easily friable with bleed. Patient does have a history of taking chronic Motrin and a 50 pound weight loss this year. Patient is awaiting transfer to tertiary care center. PHYSICAL EXAM: VITAL SIGNS: Reviewed GENERAL: Well-developed in no acute distress. HEENT: No sclera icterus. Extraocular movements grossly intact. Moist buccal mucosa. Head is atraumatic, normocephalic. Hears conversational speech. No nasal drainage. NECK: Supple without lymphadenopathy. CHEST: Non-labored respirations and equal bilateral excursions. CARDIOVASCULAR: Palpable 2+ radial pulses. ABDOMEN: Soft. Nondistended. Nontender. MUSCULOSKELETAL: No clubbing or cyanosis. NEUROLOGIC: No focal or lateralizing signs. Cranial nerves II through XII grossly intact. PSYCH: Appropriate affect. Alert and oriented to person, place and time. SKIN: Well perfused. Good skin turgor. ASSESSMENT: 1. Pneumonitis 2. Gastroesophageal reflux disease. 3. Intractable nausea and vomiting. 4. Paraesophageal hiatal hernia, intrathoracic stomach 5. Esophageal obstruction 6. Esophageal mass PLAN: -Strict nothing by mouth including avoiding oral medications as he has complete obstruction -Patient scheduled for PICC line placement and to start TPN today for nutrition support -Patient awaiting transfer to tertiary [facility] center for management of complete esophageal obstruction Physician Airport Operations Coordinator note has been reviewed by physician. Signing provider agrees with the documented findings, assessment, and plan of care. CHIEF COMPLAINT: Gastroesophageal reflux disease HISTORY OF PRESENT ILLNESS: The patient is a 66 year old male transferred from outside hospital for pneumonitis and hypoxia including intractable nausea and vomiting. Upper endoscopy demonstrated obstruction esophageal mass. Patient has a suction device for saliva. No reports of abdominal pain. "I feel hungry." REVIEW OF ORGAN SYSTEMS: HEENT: No difficulties with hearing. No nosebleeds. Has difficulty swallowing. RESPIRATORY: Recent aspiration pneumonitis on outside computed tomography scan GASTROINTESTINAL: Has gastroesophageal reflux disease. Has iron deficiency anemia. MUSCULOSKELETAL: Has back pain, stiffness or joint arthritis. Status post right knee tendon repair PHYSICAL EXAM: VITALS: Reviewed CONSTITUTIONAL: Well developed and in no acute distress. EYES: Conjuctivae without sclera icterus. Extraocular movements grossly in tact. HEAD, EARS, NOSE, THROAT: Moist buccal mucosa. Head is atraumatic, normocephalic. Hears conversational speech. No nasal drainage. RESPIRATORY: Non-labored respirations and equal bilateral excursions. CARDIOVASCULAR: Palpable 2+ radial pulses. ABDOMEN: Nontender. MUSCULOSKELETAL: Has right knee immobilizer. SKIN: Warm and well perfused with good skin turgor. NEUROLOGIC: Cranial nerves II through XII grossly intact. No focal or lateralizing signs. PSYCH: Appropriate affect. Alert and oriented to person, place and time CLINCAL LABS: Reviewed. Sodium normal at 142. Phosphorus low 1.2. PATHOLOGY: Pathology report demonstrates high-grade dysplasia with Valadez's questionable for malignancy. ASSESSMENT: 1. Pneumonitis 2. Gastroesophageal reflux disease. 3. Intractable nausea and vomiting. 4. Paraesophageal hiatal hernia, intrathoracic stomach 5. Esophageal obstruction 6. Esophageal mass 7. 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 Due to complete obstruction of the esophagus, recommend transfer to tertiary care center for further management. 2. PICC line and TPN started Objective - Vital Signs Vital signs: Vital Signs Temp 98.4 F 10/19/21 13:09 Pulse 68 10/19/21 12:48 Resp 18 10/19/21 13:09 BP 91/55 10/19/21 13:09 Pulse Ox 96 10/19/21 13:09 FiO2 Intake & Output 10/18/21 10/19/21 10/19/21 18:59 06:59 18:59 Intake Total 800 Output Total 350 2 Balance 450 -2 Weight 72.7 kg Intake: IV 800 Output: Urine 350 Emesis 2 Other: Voiding Method Urinal Urinal - Labs CBC & Chem 7: 10/18/21 06:17 10/19/21 06:28 Labs: Abnormal Lab Results - Last 24 Hours (Table) 10/18/21 10/19/21 Range/Units 15:24 06:28 Chloride 113 H (98-107) mmol/L Creatinine 0.50 L (0.66-1.25) mg/dL Calcium 7.4 L (8.4-10.2) mg/dL Phosphorus 0.5 L* 1.2 L (2.4-5.1) mg/dL Albumin 2.5 L (3.8-4.9) g/dL Microbiology - Last 24 Hours (Table) 10/14/21 03:23 Blood Culture - Preliminary Blood No Growth after 120 hours 10/14/21 03:00 Blood Culture - Preliminary Blood No Growth after 120 hours
[2021-10-19] MEDS ORDERED: MVI, ADULT NO.4 WITH VIT K 10 ML, TRACE (CONC-1ML/DOSE) 1 ML in AMINO ACID 5%-D20W+LYTE... IV ONE ×3 (16:00)
--- NOTE | 2021-10-19 16:28 | IR ---
EXAMINATION TYPE: IR cvc insert >=5 years DATE OF EXAM: 10/19/2021 COMPARISON: NONE CLINICAL HISTORY: Esophageal obstruction Needs long-term intravenous access for antibiotics. PROCEDURE: Hand hygiene obtained with soap and water and alcohol-based hand rub. After informed consent, the skin overlying the right brachial vein was localized with ultrasound and noted to be compressible and patent. An ultrasound image was obtained and submitted on the patient's chart. The overlying skin was prepped and draped and Lidocaine was used for local anesthesia. A sk in kirit was made with a scalpel. Access was gained to the vein under ultrasound guidance with a 21 g auge needle and a 0.018 inch wire was advanced. Access site was dilated with Peel-Away therapy sheat h and catheter tailored to the appropriate length and advanced such that the distal tip is at the cav oatrial junction. Spot image was obtained verifying placement. Catheter was fixed to the skin and a sterile dressing was placed following hemostasis. Catheter was aspirated and flushed with saline. Patient was discharged in stable condition without complication.Maximal barrier technique is utilized . Ultrasound image is documented on the chart. Ultrasound used with sterile technique. Fluoro time and fluoroscopic images submitted to document procedure: 16 intraoperative C-arm images, 0.1 minutes fluoroscopy time IMPRESSION: STATUS POST ULTRASOUND AND FLUOROSCOPIC GUIDED PICC LINE PLACEMENT, READY FOR USE. THIS PROCEDURE WAS PERFORMED BY THE UNDERSIGNED.
[2021-10-19] MEDS ORDERED: FAT EMULSION 20% 500 ML in EMPTY BAG 1 BAG IV SCH (18:00)
[2021-10-19 18:05] LABS: Phosphorus 0.5 mg/dL (2.4-5.1)
[2021-10-19] MEDS: SODIUM PHOSPHATE 10 MMOL in SODIUM CHLORIDE 0.9% 100 ML IVPB SCH ×2 (20:12→22:29)
[2021-10-20] MEDS: SODIUM PHOSPHATE 10 MMOL in SODIUM CHLORIDE 0.9% 100 ML IVPB SCH (00:42)
[2021-10-20] MEDS: metroNIDAZOLE-NS PMX 500 MG in SALINE 1 100ML.BAG IVPB SCH ×2 (03:19→13:22)
[2021-10-20] MEDS: CEFEPIME 2 GM in SODIUM CHLORIDE 0.9% 100 ML IVPB SCH ×2 (04:54→12:42)
[2021-10-20] MEDS: IPRATROPIUM-ALBUTEROL 3 ML NEB INHALATION SCH ×3 (07:49→14:58)
[2021-10-20] MEDS: PANTOPRAZOLE 40 MG/10 ML VIAL IVP SCH (09:10)
[2021-10-20 10:41] LABS: Magnesium 1.8 mg/dL (1.5-2.4); Phosphorus 1.4 mg/dL (2.4-5.1)
--- NOTE | 2021-10-20 11:27 | P.PN ---
Subjective Progress Note Date: 10/20/21 CHIEF COMPLAINT: GERD HISTORY OF PRESENT ILLNESS: The patient is a 66 year old male transferred from outside hospital for pneumonitis and hypoxia including intractable nausea and vomiting. EGD completed demonstrating complete esophageal obstruction due to esophageal mass easily friable with bleed. Patient started on his TPN yesterday. Patient reports that he did cough up a lot of mucus through the n ight. He required to have his yonker for suctioning replaced because it got plugged. He does report feeling hungry. Afebrile. Phosphorus 1.4 replacement per pharmacy PHYSICAL EXAM: VITAL SIGNS: Reviewed GENERAL: Well-developed in no acute distress. HEENT: No sclera icterus. Extraocular movements grossly intact. Moist buccal mucosa. Head is atraumatic, normocephalic. Hears conversational speech. No nasal drainage. NECK: Supple without lymphadenopathy. CHEST: Non-labored respirations and equal bilateral excursions. CARDIOVASCULAR: Palpable 2+ radial pulses. ABDOMEN: Soft. Nondistended. Nontender. MUSCULOSKELETAL: No clubbing or cyanosis. NEUROLOGIC: No focal or lateralizing signs. Cranial nerves II through XII grossly intact. PSYCH: Appropriate affect. Alert and oriented to person, place and time. SKIN: Well perfused. Good skin turgor. ASSESSMENT: 1. Pneumonitis 2. Gastroesophageal reflux disease. 3. Intractable nausea and vomiting. 4. Paraesophageal hiatal hernia, intrathoracic stomach 5. Esophageal obstruction 6. 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 Signing provider agrees with the documented findings, assessment, and plan of care. CHIEF COMPLAINT: Esophageal obstruction HISTORY OF PRESENT ILLNESS: The patient is a 66 year old male transferred from outside hospital for pneumonitis and hypoxia including intractable nausea and vomiting. Upper endoscopy demonstrated obstruction esophageal mass with pathology report suspicious for esophageal malignancy. He is on TPN REVIEW OF ORGAN SYSTEMS: HEENT: No difficulties with hearing. No nosebleeds. Has difficulty swallowing. RESPIRATORY: Recent aspiration pneumonitis on outside computed tomography scan GASTROINTESTINAL: Has gastroesophageal reflux disease. Has iron deficiency anemia. Reports unintentional over 50 pound weight loss in 8 months. MUSCULOSKELETAL: Has back pain, stiffness or joint arthritis. Status post right knee tendon repair PHYSICAL EXAM: VITALS: Reviewed CONSTITUTIONAL: Well developed and in no acute distress. EYES: Conjuctivae without sclera icterus. Extraocular movements grossly intact. HEAD, EARS, NOSE, THROAT: Moist buccal mucosa. Head is atraumatic, normocephalic. Hears conversational speech. No nasal drainage. RESPIRATORY: Non-labored respirations and equal bilateral excursions. CARDIOVASCULAR: Palpable 2+ radial pulses. ABDOMEN: Nontender. MUSCULOSKELETAL: Has right knee immobilizer. SKIN: Warm and well perfused with good skin turgor. NEUROLOGIC: Cranial nerves II through XII grossly intact. No focal or lateralizing signs. PSYCH: Appropriate affect. Alert and oriented to person, place and time CLINCAL LABS: Reviewed. ASSESSMENT: 1. Pneumonitis 2. Gastroesophageal reflux disease. 3. Intractable nausea and vomiting. 4. Paraesophageal hiatal hernia, intrathoracic stomach 5. Esophageal obstruction 6. Esophageal mass 7. 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 Oncology consult ordered due to new diagnosis of possible esophageal malignancy. 2. Transfer to tertiary care center pending for complete esophageal obstr uction due to esophageal mass 3. Continue TPN. 4. Care plan discussed with patient and questions answered. Objective - Vital Signs Vital signs: Vital Signs Temp 98.2 F 10/20/21 07:08 Pulse 72 10/20/21 08:01 Resp 18 10/20/21 08:01 BP 117/68 10/20/21 07:08 Pulse Ox 96 10/20/21 07:50 FiO2 Intake & Output 10/19/21 10/20/21 10/20/21 18:59 06:59 18:59 Output Total 350 Balance -350 Output: Urine 350 Other: Voiding Method Urinal Urinal Urinal # Voids 2 - Labs CBC & Chem 7: 10/18/21 06:17 10/20/21 06:36 Labs: Abnormal Lab Results - Last 24 Hours (Table) 10/18/21 10/20/21 Range/Units 15:24 06:36 Phosphorus 0.5 L* 1.4 L (2.4-5.1) mg/dL Microbiology - Last 24 Hours (Table) 10/14/21 03:23 Blood Culture - Final Blood No Growth after 144 hours 07/28/22 03:00 Blood Culture - Final Blood No Growth after 144 hours
[2021-10-20 11:45] LABS: African American GFR (CKD) 140.5 (60.0-200.0); Anion Gap 6.9 mmol/L (10.00-18.00); BUN/Creat Ratio 32.37 Ratio (12.00-20.00); Blood Urea Nitrogen 13.4 mg/dL (9.0-27.0); Calcium 7.3 mg/dL (8.7-10.3); Carbon Dioxide 24.1 mmol/L (20.0-27.5); Non-African American GFR(CKD) 121.2 (60.0-200.0); Potassium 2.7 mmol/L (3.5-5.5)
[2021-10-20] MEDS: ENOXAPARIN 40 MG/0.4 ML SYRINGE SQ SCH (11:45)
--- NOTE | 2021-10-20 13:25 | P.DS ---
Providers Date of admission: 10/14/21 01:14 Expected date of discharge: 10/20/21 Attending physician: Aren Drew MD Consults: 10/14/21 05:29 Consult Physician Routine Consulting Provider: Joshua Alfaro Consult Reason/Comments: performed recent right LE quad surgery Do you want consulting provider notified?: Yes, Notify in am 10/16/21 11:28 Consult Physician Routine Consulting Provider: Dari Sargent Consult Reason/Comments: GERD, rule out peptic ulcer disease, haital hernia Do you want consulting provider notified?: Yes 10/17/21 12:44 Consult Physician Routine Consulting Provider: [facility] Consult Reason/Comments: GETA for EGD due to aspiration pneumonitis Do you want consulting provider notified?: Yes 10/20/21 12:43 Consult Physician Routine Consulting Provider: Vick Lechuga Consult Reason/Comments: Esophageal malignancy Do you want consulting provider notified?: Yes Primary care physician: [facility] Course: 66-year-old male denies any past medical history Patient is a transfer from [facility] in the [facility], for hypoxemia secondary to what is thought to be aspiration pneumonitis. Patient recently underwent right lower extremity quadricep repair few days ago (which was an injury secondary to an accidental fall off the stairs couple months ago), he went home on Monday and reports frequent episodes of nausea vomiting despite taking his medications. He reports waking up with vomiting all around him in bed his brother grew concerned and decided to take him to the hospital for evaluation. EMS found him hypoxic in the mid 80s put him on supplemental oxygen. Patient indicated that he was not taking his liquids as prescribed for DVT prophylaxis postsurgery. CT angios the chest was performed at [facility] at the [facility] found no evidence of PE, however did show evidence of patchy infiltrates over the posteriorly in the right upper lobe and in the left lower lobe which was suggestive of possible aspiration. Patient was found to have increasing requirement of oxygen he was placed on nonrebreather 15 L. And then transferred to our facility for further care. Patient was started on cefepime and Flagyl for concerns of aspiration pneumonia. He was given supplemental O2 to maintain O2 saturation greater than 92%. With regard to his intractable nausea and vomiting, he underwent gastric emptying s dy which was within normal limits. CT chest and abdomen showed dilated esophagus measuring up to 7 cm in diameter with retained food material and oral contrast. Gen. surgery was consulted and recommended EGD. EGD showed obstructive mass at 32 cm from the incisor, polypoid, easily friable. Surgery recommended transfer to a tertiary center for higher level of care. The case was discussed with Dr. Lee Parkinson at [facility] who graciously accepted the patient for transfer. Case was also discussed with Hilario fuentes POA who agreed to the transfer. Patient underwent PICC line and initiation of TPN during his hospitalization. He was noticed to have a potassium of 2.7 on 10/20. Replacement was ordered. Patient is currently pending bed availability and transportation. General: [non toxic], [no distress], [appears at stated age] Derm: [warm], [dry] Head: [atraumatic], [normocephalic], [symmetric] Eyes: [EOMI], [no lid lag], [anicteric sclera] Mouth: [no lip lesion], [mucus membranes moist] Cardiovascular: [S1S2 reg], [no murmur] Lungs: [Decreased breath sounds bilateral], [no rhonchi, no rales] Abdominal: [soft], [ nontender to palpation] Ext: [no gross muscle atrophy], [no edema], [no contractures] Psych: [Alert], [oriented], [appropriate affect] Discharge diagnosis: Hypokalemia Intractable nausea and vomiting Esophageal mass Acute hypoxic respiratory failure secondary to aspiration pneumonia Normocytic anemia Resolved: Hypomagnesemia, hypokalemia This complex discharge took about 60 minutes to complete. Pertinent Studies: Chest x-ray Gastric emptying study Chest and abdomen CT Procedures: EGD Patient Condition at Discharge: Stable Plan - Discharge Summary Discharge Rx Participant: Yes New Discharge Prescriptions: No Action Ferrous Sulfate [Feosol] 325 mg PO DAILY Apixaban [Eliquis] 2.5 mg PO BID #24 tab Sennosides-Docusate Sodium [Senokot-S] 1 tab PO BID #60 tablet Ondansetron Odt [Zofran Odt] 4 mg PO Q8HR PRN #14 tab PRN Reason: Nausea Discharge Medication List Ferrous Sulfate [Feosol] 325 mg PO DAILY 10/08/21 [History] Apixaban [Eliquis] 2.5 mg PO BID #24 tab 10/11/21 [Rx] Ondansetron Odt [Zofran Odt] 4 mg PO Q8HR PRN #14 tab 10/11/21 [Rx] Sennosides-Docusate Sodium [Senokot-S] 1 tab PO BID #60 tablet 10/11/21 [Rx] Follow up Appointment(s)/Referral(s): [facility] [NON-STAFF] - ([facility] will call you to arrange a vis it.) Ain Diaz PAC [Primary Care Provider] - 1-2 days Joshua Alfaro MD [STAFF PHYSICIAN] - 1 Week Activity/Diet/Wound Care/Special Instructions: Maintain knee immobilizer. Remove Optifoam dressing in 7 days (11/06/2021) Skin clips may be removed on 10/25/2021 and apply Steri-Strips as needed. Toe-touch weightbearing right lower extremity with walker. Do not allow patient to bend the knee.
[2021-10-20] MEDS ORDERED: SODIUM PHOSPHATE 10 MMOL in SODIUM CHLORIDE 0.9% 100 ML IVPB SCH (14:00)
[2021-10-20] MEDS: POTASSIUM CHLORIDE 20 MEQ in WATER FOR INJECTION 1 100ML.BAG IVPB SCH ×2 (15:24→17:19)
[2021-10-20 18:58] VITALS: BP 163/65; PULSE 76; RESP 19; TEMP 98.3
[2021-10-20] MEDS ORDERED: 1: MVI, ADULT NO.4 WITH VIT K 10 ML, TRACE (CONC-1ML/DOSE) 1 ML in AMINO ACID 5%-D20W+LY IV SCH ×3 (20:00)
== END 2021-10-20 19:06 | disposition short-term general hospital (02) | DRG 177 ==
LOC: EC 22:25 → 4SSUR 10-14 01:14
PROVIDERS: ADMIT Internal Medicine; ATTEND Internal Medicine
PROC: 0DB58ZX Excision of Esophagus, Via Natural or Artificial Opening Endoscopic, Diagnostic (ICD-10-PCS; 2021-10-18 07:30)
PROC: 0DC58ZZ Extirpation of Matter from Esophagus, Via Natural or Artificial Opening Endoscopic (ICD-10-PCS; 2021-10-18 07:30)
PROC: 02HV33Z Insertion of Infusion Device into Superior Vena Cava, Percutaneous Approach (ICD-10-PCS; principal; 2021-10-19)
PROC: 3E0436Z Introduction of Nutritional Substance into Central Vein, Percutaneous Approach (ICD-10-PCS; 2021-10-19)
DX: J69.0 Pneumonitis due to inhalation of food and vomit (principal); J96.01 Acute respiratory failure with hypoxia; C15.9 Malignant neoplasm of esophagus, unspecified; K92.2 Gastrointestinal hemorrhage, unspecified; K21.9 Gastro-esophageal reflux disease without esophagitis; K22.2 Esophageal obstruction; K22.89 Other specified disease of esophagus; I44.0 Atrioventricular block, first degree; Z82.49 Family history of ischemic heart disease and other diseases of the circulatory system; R63.4 Abnormal weight loss; K44.9 Diaphragmatic hernia without obstruction or gangrene; E86.0 Dehydration; Z68.31 Body mass index [BMI] 31.0-31.9, adult; D50.9 Iron deficiency anemia, unspecified; E83.42 Hypomagnesemia; E87.6 Hypokalemia; M19.90 Unspecified osteoarthritis, unspecified site; S76.119D Strain of unspecified quadriceps muscle, fascia and tendon, subsequent encounter; W10.9XXD Fall (on) (from) unspecified stairs and steps, subsequent encounter; Z88.6 Allergy status to analgesic agent; Z88.0 Allergy status to penicillin; Z79.01 Long term (current) use of anticoagulants; Z79.1 Long term (current) use of non-steroidal anti-inflammatories (NSAID)
CPT/HCPCS: 36573; 43239; 43247; 71046; 71250; 74150; 78264; 80048; 81001; 82040; 82330; 83735; 84100; 84478; 85025; 87040; 87070; 87205; 87635; 88305; 93005; 94640; 94760; 96365; 96367; 99285